=== PATIENT | male | born 1975 | race Hispanic/Latino ===

== ENCOUNTER 2018-01-19 14:05 | Observation (INO) | payer BC ==
--- OUTSIDE RECORDS SUMMARY | 2018-01-19 14:08 | XMS REPORT | Clinical Summary ---
:1975 Author Organization [facility] Address [address] [place] [address] Care Team Providers Name Role Phone Cristhianumu Halima Rutledge MD Primary Care Provider Allergies Active Allergy Reactions Severity Noted Date Comments Sulfa (Sulfonamide Antibiotics) 03/14/2016 Sulfamethoxazole-Trimethoprim Hives Medium 10/20/2016 Current Medications Prescription Sig. Disp. Refills Start End Date Status Date tamsulosin (FLOMAX) tamsulosin 0.4 mg Active 0.4 mg capsule capsule,extended release 24hr meloxicam (MOBIC) meloxicam 15 mg 30 tablet 2 Active 15 mg tablet prn pain 8 tabletIndications: Thoracolumbar back pain, Unspecified thoracic, thoracolumbar and lumbosacral intervertebral disc disorder, Radiculopathy of lumbar region clotrimazole-betame Apply topically 2 30 g 3 Active thasone (LOTRISONE) (two) times a day. 8 1-0.05 % clotrimazole-betam creamIndications: ethasone 1 %-0.05 Rash % topical cream ibuprofen Take 1 tablet (800 30 tablet 0 Active (ADVIL,MOTRIN) 800 mg total) by mouth 8 MG tablet every 8 (eight) hours as needed for mild pain or moderate pain for up to 30 doses. esomeprazole Take 40 mg by 06/19/20 Discontinued (NexIUM) 40 MG mouth daily before 17 capsule breakfast. acetaminophen-codei Take 1-2 tablets 20 tablet 0 06/25/20 ne (TYLENOL WITH by mouth every 6 7 17 CODEINE #3) 300-30 (six) hours as mg per tablet needed for moderate pain for up to 5 days. amoxicillin-pot amoxicillin 875 11/30/19 Discontinued clavulanate mg-potassium 18 (AUGMENTIN) 875-125 clavulanate 125 mg mg per tablet tablet ciprofloxacin ciprofloxacin 500 11/30/19 Discontinued (CIPRO) 500 MG mg tablet 18 tablet clotrimazole-betame clotrimazole-betam 11/30/19 Discontinued thasone (LOTRISONE) ethasone 1 %-0.05 18 1-0.05 % cream % topical cream doxycycline (DORYX) doxycycline 11/30/19 Discontinued 100 MG EC tablet hyclate 100 mg 18 tablet,delayed release doxycycline (ADOXA) doxycycline 11/30/19 Discontinued 100 MG tablet monohydrate 100 mg 18 tablet fluconazole fluconazole 150 mg 11/30/19 Discontinued (DIFLUCAN) 150 MG tablet 18 tablet furosemide (LASIX) furosemide 40 mg 11/30/19 Discontinued 40 mg tablet tablet 18 meloxicam (MOBIC) meloxicam 15 mg 11/30/19 Discontinued 15 mg tablet tablet 18 naproxen (NAPROSYN) naproxen 500 mg 11/30/19 Discontinued 500 MG tablet tablet 18 levoFLOXacin levofloxacin 500 11/30/19 Discontinued (LEVAQUIN) 500 MG mg tablet 18 tablet clotrimazole-betame clotrimazole-betam 30 g 3 12/11/19 Discontinued thasone (LOTRISONE) ethasone 1 %-0.05 8 18 1-0.05 % % topical cream creamIndications: Rash ondansetron Take 1 tablet (4 20 tablet 0 12/21/19 (ZOFRAN) 4 MG mg total) by mouth 8 18 tablet every 8 (eight) hours as needed for nausea or vomiting for up to 7 days. Active Problems Problem Noted Date Pedal edema 12/07/2016 Near syncope 12/07/2016 Bilateral edema of lower extremity 12/05/2016 Encounters Date Type Specialty Care Team Description 12/25/2017 Telephone Internal Medicine [place] Halima Rutledge MD 12/24/2017 Hospital Encounter Radiology [facility] Thoracolumbar back pain; Aamir, Isaiahified thoracic, thoracolumbar and lumbosacral intervertebral disc disorder; Remilekun Radiculopathy of lumbar region MD Ava 12/24/2017 Hospital Encounter Radiology [place] Thoracolumbar back pain; Agbe-Mccarthy, Unspecified thoracic, thoracolumbar and lumbosacral intervertebral disc disorder; Remilekun Radiculopathy of lumbar region MD Ava 12/13/2017 Emergency Emergency [facility] Schmitt [facility] abdominal Medicine MD Stephanie pain (Primary Dx) 12/10/2017 Telephone Internal Medicine [place] Rash Halima Rutledge MD 12/10/2017 Telephone Internal Medicine [place] Gastroesophageal reflux Aamir, disease, esophagitis Halima presence not specified MD Ava (Primary Dx) 11/29/2017 Office Visit Internal Medicine [place] Thoracolumbar back pain ( Primary Dx); Agbe-Mccarthy, Unspecified thoracic, thoracolumbar and lumbosacral intervertebral disc disorder; Remilekun Radiculopathy of lumbar region; MD Ava Thoracic radiculopathy; Visual disturbance; Weight gain; Rash 11/29/2017 Procedure Pass Radiology 11/29/2017 Procedure Pass Radiology 06/20/2017 Hospital Encounter General Surgery Win Quintero III, MD 06/20/2017 Procedure Pass General Surgery 06/20/2017 Surgery General Surgery Win Quintero ESWL RIGHT Misha GONZALEZ MD 06/19/2017 Anesthesia Event General Surgery Radha Balderrama FNP 05/21/2017 Telephone Internal Medicine [place] Halima Rutledge MD 03/19/2017 Telephone Internal Medicine [place] Halima Rutledge MD after 01/18/2017 Family History Medical History Relation Name Comments CABG/Stent Brother age 61 Heart attack Brother age 61 No Known Problems Brother No Known Problems Brother No Known Problems Brother Old age Father age 93 Hypertension Maternal Grandmother Hypertension Mother age 84 No Known Problems Paternal Grandfather No Known Problems Paternal Grandmother COPD Sister No Known Problems Sister No Known Problems Sister No Known Problems Sister Relation Name Status Comments Brother age 61 Alive has had OR and has stents age 55 Brother Alive Brother Alive Brother Alive Father age 93 Maternal Grandfather Maternal Grandmother Mother age 84 Alive Paternal Grandfather Paternal Grandmother Sister Alive Sister Alive Sister Alive Sister Alive Social History Tobacco Use Types Packs/Day Years Used Date Former Smoker Smokeless Tobacco: Never Used Tobacco Cessation: Counseling Given: Yes Comments: 2-3 cigs per day more off than on for 20yrs. Quit 03/10/16 Alcohol Use Drinks/Week oz/Week Comments Yes 12 Cans of beer 7.2 Sex Assigned at Date Recorded Not on file Last Filed Vital Signs Vital Sign Reading Time Taken Blood Pressure 142/90 12/13/2017 3:36 PM CDT Pulse 65 12/13/2017 3:36 PM CDT Temperature 36.4 C (97.5 F) 12/13/2017 3:36 PM CDT Respiratory Rate 20 12/13/2017 3:36 PM CDT Oxygen Saturation 100% 12/13/2017 3:36 PM CDT Inhaled Oxygen Concentration - - Weight 91 kg (200 lb 9.6 oz) 11/29/2017 2:39 PM CDT Height 177.8 cm (5' 10") 12/13/2017 12:43 PM CDT Body Mass Index 28.78 11/29/2017 2:39 PM CDT Plan of Treatment Date Type Specialty Care Team Description 01/31/2018 Office Visit Gastroenterology Clemente Farah MD [address] [address] Health Maintenance Due Date Last Done Comments INFLUENZA VACCINE 02/06/2018 Procedures Procedure Name Priority Date/Time Associated Diagnosis Comments MRI THORACIC SPINE WO Routine 12/24/2017 9:30 Thoracolumbar back Results for this CONTRAST PM CDT pain procedure are in Unspecified thoracic, the results thoracolumbar and section. lumbosacral intervertebral disc disorder Radiculopathy of lumbar region MRI LUMBAR SPINE WO Routine 12/24/2017 9:30 Thoracolumbar back Results for this CONTRAST PM CDT pain procedure are in Unspecified thoracic, the results thoracolumbar and section. lumbosacral intervertebral disc disorder Radiculopathy of lumbar region CT ABDOMEN PELVIS W STAT 12/13/2017 5:21 Results for this CONTRAST PM CDT procedure are in the results section. US GALLBLADDER STAT 12/13/2017 3:08 Results for this PM CDT procedure are in the results section. ESTIMATED GFR STAT 12/13/2017 2:30 Results for this PM CDT procedure are in the results section. URINALYSIS SCREEN AND STAT 12/13/2017 2:30 Results for this MICROSCOPY, WITH PM CDT procedure are in REFLEX TO CULTURE the results section. LIPASE LEVEL STAT 12/13/2017 2:30 Results for this PM CDT procedure are in the results section. COMPREHENSIVE STAT 12/13/2017 2:30 Results for this METABOLIC PANEL PM CDT procedure are in the results section. HC COMPLETE BLD COUNT STAT 12/13/2017 2:30 Results for this W/AUTO DIFF PM CDT procedure are in the results section. URINE CULTURE STAT 12/13/2017 2:30 Results for this PM CDT procedure are in the results section. MICROSCOPIC Routine 11/29/2017 3:26 Results for this EXAMINATION PM CDT procedure are in the results section. THYROID STIMULATING Routine 11/29/2017 3:26 Weight gain Results for this HORMONE PM CDT procedure are in the results section. CBC WITH PLATELET AND Routine 11/29/2017 3:26 Thoracolumbar back Results for this DIFFERENTIAL PM CDT pain procedure are in the results section. URINALYSIS, AUTOMATED Routine 11/29/2017 3:26 Thoracolumbar back Results for this WITH MICROSCOPY PM CDT pain procedure are in the results section. COMPREHENSIVE Routine 11/29/2017 3:26 Thoracolumbar back Results for this METABOLIC PANEL PM CDT pain procedure are in the results section. PA AN ELECTIVE Routine 06/20/2017 2:09 SUPRAGLOTTIC AIRWAY PM CREATIVE PRODUCER Procedure Note - Ligia Hui CRNA - 06/20/2017 2:09 PM CREATIVE PRODUCER Airway Date/Time: 06/20/2017 1:54 PM Performed by: LIGIA HUI Authorized by: WARREN ROTHMAN Location: OR Urgency: Elective Difficult Airway: No Anesthesiologist: WARREN ROTHMAN Resident/ENROLLMENT ADVISOR/AA: LIGIA HUI Performed by: anesthesiologist and resident/ENROLLMENT ADVISOR/AA Preoxygenated with 100% O2: Yes C-spine Precautions Maintained Throughout: Yes Mask Ventilation: Not attempted Final Airway Type: Supraglottic airway Final LMA: I-Gel LMA Size: 5 Number of Attempts at Approach: 1 POC GLUCOSE Routine 06/20/2017 12:01 PM CREATIVE PRODUCER after 01/18/2017 Results MRI Thoracic Spine Wo Contrast (12/24/2017 9:30 PM) Narrative Performed At EXAMINATION: MRI THORACIC SPINE WO CONTRAST [facility] CLINICAL HISTORY: M54.5 Low back pain, M51.9 Unspecified thoracicthoracolumbar and lumbosacral intervertebral disc disorder, Thoracolumbar radiculopathyLE weakness soreness COMPARISON:None TECHNIQUE: Multiplanar multisequence noncontrast enhanced examination was performed of the thoracic spine. FINDINGS: No vertebral fracture. No subluxation. No suspicious osseous lesions. No abnormal spinal cord signal. Small left paracentral disc protrusion and endplate osteophyte at T8-9 and small central disc protrusion at T9-10 indent the ventral thecal sac without significant spinal canal or neural foraminal stenosis. Small Schmorl's node superior endplate of T10 and T11 without edema. No significant neural foraminal stenosis throughout the thoracic spine. There is no mass, adenopathy or aneurysm of the visualized soft tissues. IMPRESSION: 1. Minimal degenerative changes without significant spinal canal or neural foraminal stenosis. [id number] Procedure Note Hm Interface, Radiology Results Incoming - 12/24/2017 9:54 PM CDT EXAMINATION: MRI THORACIC SPINE WO CONTRAST CLINICAL HISTORY: M54.5 Low back pain, M51.9 Unspecified thoracic thoracolumbar and lumbosacral intervertebral disc disorder, Thoracolumbar radiculopathy LE weakness soreness COMPARISON: None TECHNIQUE: Multiplanar multisequence noncontrast enhanced examination was performed of the thoracic spine. FINDINGS: No vertebral fracture. No subluxation. No suspicious osseous lesions. No abnormal spinal cord signal. Small left paracentral disc protrusion and endplate osteophyte at T8-9 and small central disc protrusion at T9-10 indent the ventral thecal sac without significant spinal canal or neural foraminal stenosis. Small Schmorl's node superior endplate of T10 and T11 without edema. No significant neural foraminal stenosis throughout the thoracic spine. There is no mass, adenopathy or aneurysm of the visualized soft tissues. IMPRESSION: 1. Minimal degenerative changes without significant spinal canal or neural foraminal stenosis. [facility]-[id number] Performing Organization Address City/State/Zipcode Phone Number [facility] [address] [place] [address] MRI Lumbar Spine Wo Contrast (12/24/2017 9:30 PM) Narrative Performed At EXAMINATION: MRI LUMBAR SPINE WO CONTRAST [facility] CLINICAL HISTORY: M54.5 Low back pain, M51.9 Unspecified thoracic thoracolumbar and lumbosacral intervertebral disc disorder, Thoracolumbar radiculopathyLE weakness soreness COMPARISON:None TECHNIQUE: Multiplanar multisequence nonenhanced MRI examination was performed of the Lumbar spine. FINDINGS: There are 5 non-rib bearing lumbar type vertebrae. No fracture. No subluxation.No suspicious osseous lesions. No degenerative marrow signal abnormality is present. Conus medullaris terminates at the level of L2. Evaluation of the visualized soft tissues demonstrates no mass, adenopathy or aneurysm. Axial images through the disc spaces demonstrate the following: L1-L2: No significant posterior disc disease, spinal canal, subarticular zone, or neural foraminal stenosis. L2-L3: No significant posterior disc disease, spinal canal, subarticular zone, or neural foraminal stenosis. L3-L4: Small disc bulge contributes to mild bilateral neural foraminal stenosis. No significant spinal canal or subarticular zone stenosis. L4-L5: No significant posterior disc disease, spinal canal, subarticular zone, or neural foraminal stenosis. L5-S1: Small disc bulge with superimposed small left paracentral/foraminal disc protrusion, contributes to mild left greater than right subarticular zone stenosis. Mild bilateral neural foraminal stenosis secondary to small disc bulge and endplate osteophytes. No significant spinal canal stenosis. IMPRESSION: 1. Mild degenerative changes of the lumbar spine, notably at L3-4 and L5-S1 as above. No fracture or traumatic subluxation. [facility]-[id number] Procedure Note Interface, Radiology Results - 12/24/2017 9:56 PM CDT EXAMINATION: MRI LUMBAR SPINE WO CONTRAST CLINICAL HISTORY: M54.5 Low back pain, M51.9 Unspecified thoracic thoracolumbar and lumbosacral intervertebral disc disorder, Thoracolumbar radiculopathy LE weakness soreness COMPARISON: None TECHNIQUE: Multiplanar multisequence nonenhanced MRI examination was performed of the Lumbar spine. FINDINGS: There are 5 non-rib bearing lumbar type vertebrae. No fracture. No subluxation. No suspicious osseous lesions. No degenerative marrow signal abnormality is present. Conus medullaris terminates at the level of L2. Evaluation of the visualized soft tissues demonstrates no mass, adenopathy or aneurysm. Axial images through the disc spaces demonstrate the following: L1-L2: No significant posterior disc disease, spinal canal, subarticular zone, or neural foraminal stenosis. L2-L3: No significant posterior disc disease, spinal canal, subarticular zone, or neural foraminal stenosis. L3-L4: Small disc bulge contributes to mild bilateral neural foraminal stenosis. No significant spinal canal or subarticular zone stenosis. L4-L5: No significant posterior disc disease, spinal canal, subarticular zone, or neural foraminal stenosis. L5-S1: Small disc bulge with superimposed small left paracentral/foraminal disc protrusion, contributes to mild left greater than right subarticular zone stenosis. Mild bilateral neural foraminal stenosis secondary to small disc bulge and endplate osteophytes. No significant spinal canal stenosis. IMPRESSION: 1. Mild degenerative changes of the lumbar spine, notably at L3-4 and L5-S1 as above. No fracture or traumatic subluxation. [id number] Performing Organization Address City/State/Zipcode Phone Number [facility] [address] [place] [address] CT Abdomen Pelvis W Contrast (12/13/2017 5:21 PM) Narrative Performed At Examination: [facility] COMPARISON: None. REASON FOR EXAM: abdominal pain TECHNIQUE: Axial 5 mm sections were obtained after intravenous injection of contrast. Coronal and sagittal reconstructions were performed. All CT scans are performed using radiation dose reduction techniques. Technical factors are evaluated and adjusted to ensure appropriate moderation of exposure. Automated dose management technology is supplied to adjust the radiation dose to minimize exposure while achieving a diagnostic quality image. FINDINGS: Lower lung durand: The lower lung durand are clear. Liver: Liver density is homogeneous except for a couple of small subcentimeter cysts, one in the left lobe and one in the right lobe. Biliary: LVAD is normal in size and there are no calculi. Spleen: Spleen size is normal. Pancreas: Pancreas size and lobulation is normal. Adrenals: Adrenal glands are normal in size. Kidneys: There is no hydronephrosis. There is a 3 mm nonobstructing intrarenal calculus in the middle zone of the right kidney. Lymph nodes: No retroperitonealadenopathy Vascular: Aorta and venacava diameters are normal. G.I. The bowel caliber is normal.There are no inflamatory changes. The appendix is normal. Pelvis: Bladder outline is smooth. There are numerous sigmoid diverticula with no signs of acute diverticulitis. Skeletal: The skeletal structures are unremarkable. IMPRESSION: Nonobstructing 3 mm right intrarenal renal calculus. [id number] Procedure Note Hm Interface, Radiology Results Incoming - 12/13/2017 5:34 PM CDT Examination: CT abdomen with pelvis with COMPARISON: None. REASON FOR EXAM: abdominal pain TECHNIQUE: Axial 5 mm sections were obtained after intravenous injection of contrast. Coronal and sagittal reconstructions were performed. All CT scans are performed using radiation dose reduction techniques. Technical factors are evaluated and adjusted to ensure appropriate moderation of exposure. Automated dose management technology is supplied to adjust the radiation dose to minimize exposure while achieving a diagnostic quality image. FINDINGS: Lower lung durand: The lower lung durand are clear. Liver: Liver density is homogeneous except for a couple of small subcentimeter cysts, one in the left lobe and one in the right lobe. Biliary: LVAD is normal in size and there are no calculi. Spleen: Spleen size is normal. Pancreas: Pancreas size and lobulation is normal. Adrenals: Adrenal glands are normal in size. Kidneys: There is no hydronephrosis. There is a 3 mm nonobstructing intrarenal calculus in the middle zone of the right kidney. Lymph nodes: No retroperitonealadenopathy Vascular: Aorta and venacava diameters are normal. G.I. The bowel caliber is normal. There are no inflamatory changes. The appendix is normal. Pelvis: Bladder outline is smooth. There are numerous sigmoid diverticula with no signs of acute diverticulitis. Skeletal: The skeletal structures are unremarkable. IMPRESSION: Nonobstructing 3 mm right intrarenal renal calculus. [id number] Performing Organization Address City/State/Zipcode Phone Number [facility] [address] [place] [address] US Gallbladder (12/13/2017 3:08 PM) Narrative Performed At EXAMINATION[facility] CLINICAL H[facility]ORY:Cholecystitis COMPARISON:None. FINDINGS: Gallbladder: The gallbladder is without evidence of calculi. The gallbladder wall is not thickened and there is no pericholecystic fluid. CBD:3 mm , within normal limits. Portal vein: The portal vein demonstrates normal hepatopetal flow. The portal vein measures 6 mm, within normal limits. IMPRESSION: Negative gallbladder ultrasound examination. [facility]-[id number] Procedure Note Interface, Radiology Results Incoming - 12/13/2017 3:13 PM CDT EXAMINATION: US GALLBLADDER CLINICAL HISTORY: Cholecystitis COMPARISON: None. FINDINGS: Gallbladder: The gallbladder is without evidence of calculi. The gallbladder wall is not thickened and there is no pericholecystic fluid. CBD: 3 mm , within normal limits. Portal vein: The portal vein demonstrates normal hepatopetal flow. The portal vein measures 6 mm, within normal limits. IMPRESSION: Negative gallbladder ultrasound examination. [facility]-[id number] Performing Organization Address City/State/Zipcode Phone Number [facility] [address] [place] [address] Urinalysis screen and microscopy, with reflex to culture (12/13/2017 2:30 PM) Specimen site Clean catch [facility] DEPARTMENT OF PATHOLOGY AND GENOMIC MEDICINE Color, UA Yellow [facility] DEPARTMENT OF PATHOLOGY AND GENOMIC MEDICINE Appearance, UA Clear [facility] DEPARTMENT OF PATHOLOGY AND GENOMIC MEDICINE Specific gravity, UA 1.021 1.001 - 1.030 [facility] DEPARTMENT OF PATHOLOGY AND GENOMIC MEDICINE pH, UA 5.0 5.0 - 9.0 [facility] DEPARTMENT OF PATHOLOGY AND GENOMIC MEDICINE Protein, UA Negative Negative [facility] OF PATHOLOGY AND GENOMIC MEDICINE Glucose, UA Negative Negative [facility] OF PATHOLOGY AND GENOMIC MEDICINE Ketones, UA Negative Negative [facility] DEPART[facility] OF PATHOLOGY AND GENOMIC MEDICINE Bilirubin, UA Negative Negative [facility] DEPARTMENT OF PATHOLOGY AND GENOMIC MEDICINE Blood, UA Negative Negative [facility] DEPARTMENT OF PATHOLOGY AND GENOMIC MEDICINE Nitrite, UA Negative Negative [facility] DEPARTMENT OF PATHOLOGY AND GENOMIC MEDICINE Urobilinogen, UA <2.0 <2.0 E.U./dL [facility] DEPARTMENT OF PATHOLOGY AND GENOMIC MEDICINE Leukocyte esterase, UA Negative Negative [facility] DEPARTMENT OF PATHOLOGY AND GENOMIC MEDICINE WBC, UA <1 0 - 1 /HPF [facility] DEPARTMENT OF PATHOLOGY AND GENOMIC MEDICINE RBC, UA None seen 0 - 5 /HPF [facility] DEPARTMENT OF PATHOLOGY AND GENOMIC MEDICINE Bacteria, UA None seen None seen [facility] DEPARTMENT OF PATHOLOGY AND GENOMIC MEDICINE Yeast, UA None seen [facility] DE[facility]MENT OF PATHOLOGY AND GENOMIC MEDICINE Yeast with pseudohyphae, UA None seen [facility] DEPARTMENT OF PATHOLOGY AND GENOMIC MEDICINE Specimen Urine Performing Organization Address City/State/Zipcode Phone Number [facility] DEPARTMENT OF PATHOLOGY [address] [place] [address] AND [employer] [facility] Estimated GFR (12/13/2017 2:30 PM) GFR Non Af Amer 73 mL/min/1.73 m2 [facility] DEPARTMENT OF PATHOLOGY AND GENOMIC MEDICINE GFR Af Amer 88 mL/min/1.73 m2 [facility] DEPARTMENT OF Comment: PATHOLOGY AND GENOMIC Chronic kidney disease: <60 mL/min/1.73m2 MEDICINE Kidney failure: <15 mL/min/1.73m2 The estimated GFR is calculated from the IDMS-traceable Modification of Diet in Renal Disease Equation. The accuracy of the calculation is poor when the creatinine is normal. Calculated values >90 mL/min/1.73m2 are not reported. This equation has not been validated in children (<18 years), women, the elderly (>70 years), or ethnic groups other than Caucasians and Americans. Specimen Plasma specimen Performing Organization Address City/State/Zipcode Phone Number [facility] DEPARTMENT OF PATHOLOGY [address] [place] [address] AND [facility] CBC with platelet and differential (12/13/2017 2:30 PM)Only the most recent of2 resultswithin the time period is included. WBC 4.3 (L) 4.5 - 11.0 k/uL [facility] DEPARTMENT OF PATHOLOGY AND GENOMIC MEDICINE RBC 4.25 (L) 4.40 - 6.00 m/uL [facility] DEPARTMENT OF PATHOLOGY AND GENOMIC MEDICINE HGB 14.1 14.0 - 18.0 g/dL [facility] DEPARTMENT OF PATHOLOGY AND GENOMIC MEDICINE HCT 41.2 41.0 - 51.0 % [facility] DEPARTMENT OF PATHOLOGY AND GENOMIC MEDICINE MCV 96.9 82.0 - 100.0 fL [facility] DEPARTMENT OF PATHOLOGY AND GENOMIC MEDICINE MCH 33.2 27.0 - 34.0 pg [facility] DEPARTMENT OF PATHOLOGY AND GENOMIC MEDICINE MCHC 34.2 31.0 - 37.0 g/dL [facility] DEPARTMENT OF PATHOLOGY AND GENOMIC MEDICINE RDW - SD 43.1 37.0 - 55.0 fL [facility] DEPARTMENT OF PATHOLOGY AND GENOMIC MEDICINE MPV 9.4 6.9 - 11.0 fL [facility] DEPARTMENT OF PATHOLOGY AND GENOMIC MEDICINE Platelet count 254 150 - 400 K/uL [facility] DEPARTMENT OF PATHOLOGY AND GENOMIC MEDICINE Nucleated RBC 0.00 /100 WBC [facility] DEPARTMENT OF PATHOLOGY AND GENOMIC MEDICINE Neutrophils 36.7 (L) 39.0 - 69.0 % [facility] DEPARTMENT OF PATHOLOGY AND GENOMIC MEDICINE Lymphocytes 53.1 (H) 25.0 - 45.0 % [facility] DEPARTMENT OF PATHOLOGY AND GENOMIC MEDICINE Monocytes 7.7 0.0 - 10.0 % [facility] DEPARTMENT OF PATHOLOGY AND GENOMIC MEDICINE Eosinophils 1.4 0.0 - 5.0 % [facility] DEPARTMENT OF PATHOLOGY AND GENOMIC MEDICINE Basophils 0.9 0.0 - 1.0 % [facility] DEPARTMENT OF PATHOLOGY AND GENOMIC MEDICINE Immature granulocytes 0.2 0.0 - 1.0 % [facility] DEPARTMENT OF PATHOLOGY AND GENOMIC MEDICINE Specimen Blood Performing Organization Address City/[facility]/Zipcode Phone Number [facility] DEPARTMENT OF PATHOLOGY [address] [place] [address] AND [facility] Urine culture (12/13/2017 2:30 PM) Urine culture SEE COMMENTComment: Bacteriuria [facility] DEPARTMENT OF PATHOLOGY screen negative. AND GENOMIC MEDICINE Performing Organization Address City/[facility]/Zipcode Phone Number [facility] DEPARTMENT OF PATHOLOGY [address] [place] [address] AND [facility] Lipase level (12/13/2017 2:30 PM) Lipase 45 13 - 60 U/L [facility] DEPARTMENT OF PATHOLOGY AND GENOMIC MEDICINE Specimen Plasma specimen Performing Organization Address [facility] Phone Number [facility] DEPARTMENT OF PATHOLOGY [address] [place] [address]. [place] [address] AND [facility] Comprehensive metabolic panel (12/13/2017 2:30 PM)Only the most recent of2 resultswithin the time period is included. Sodium 141 135 - 148 mEq/L [facility] DEPARTMENT OF PATHOLOGY AND GENOMIC MEDICINE Potassium 4.1 3.5 - 5.0 mEq/L [facility] DEPARTMENT OF PATHOLOGY AND GENOMIC MEDICINE Chloride 105 98 - 112 mEq/L [facility] DEPARTMENT OF PATHOLOGY AND GENOMIC MEDICINE CO2 25 24 - 31 mEq/L [facility] DEPARTMENT OF PATHOLOGY AND GENOMIC MEDICINE Anion gap 11@ANIO 7 - 15 mEq/L [facility] DEPARTMENT OF PATHOLOGY AND GENOMIC MEDICINE BUN 19 6 - 20 mg/dL [facility] DEPARTMENT OF PATHOLOGY AND GENOMIC MEDICINE Creatinine 1.1 0.7 - 1.2 mg/dL [facility] DEPARTMENT OF PATHOLOGY AND GENOMIC MEDICINE Glucose 84 65 - 99 mg/dL [facility] DEPARTMENT OF PATHOLOGY AND GENOMIC MEDICINE Calcium 8.8 8.3 - 10.2 mg/dL [facility] DEPARTMENT OF PATHOLOGY AND GENOMIC MEDICINE Protein 7.0 6.3 - 8.3 g/dL [facility] DEPARTMENT OF PATHOLOGY AND GENOMIC MEDICINE Albumin 4.1 3.5 - 5.0 g/dL [facility] DEPARTMENT OF PATHOLOGY AND GENOMIC MEDICINE A/G ratio 1.4 0.7 - 3.8 [facility] DEPARTMENT OF PATHOLOGY AND GENOMIC MEDICINE Alkaline phosphatase 43 40 - 129 U/L [facility] DEPARTMENT OF PATHOLOGY AND GENOMIC MEDICINE AST 19 10 - 50 U/L [facility] DEPARTMENT OF PATHOLOGY AND GENOMIC MEDICINE ALT 26 5 - 50 U/L [facility] DEPARTMENT OF PATHOLOGY AND GENOMIC MEDICINE Total bilirubin 0.6 0.2 - 1.2 mg/dL [facility] DEPARTMENT OF PATHOLOGY AND GENOMIC MEDICINE Specimen Plasma specimen Performing Organization Address [facility] Phone Number [facility] DEPARTMENT OF PATHOLOGY [address] [place] [address] AND [employer] [facility] Microscopic Examination (11/29/2017 3:26 PM) WBC, UA 0-5 0 - 5 /hpf [facility] RBC, UA 0-2 0 - 2 /hpf [facility] Epithelial cells (non renal) 0-10 0 - 10 /hpf [facility] Mucus, UA Present Not Estab. [facility] Bacteria, UA None seen None seen/Few [facility] Narrative Performed At Performed at:01 - [facility] [address] [place], [id number] Hypnotherapist: Yves Tran MD, Phone:[phone] Performing Organization Address City/[facility]/Zipcode Phone Number [facility] Urinalysis, automated with microscopy (11/29/2017 3:26 PM) Specific gravity, urine 1.022 1.005 - 1.030 [facility] pH, urine 6.0 5.0 - 7.5 [facility] Color, UA Yellow Yellow [facility] Appearance Clear Clear [facility] WBC esterase, urine Negative Negative [facility] Protein, UA Negative Negative/Trace [facility] Glucose, urine Negative Negative [facility] Ketones, UA Negative Negative [facility] Occult blood, urine Negative Negative [facility] Bilirubin, UA Negative Negative [facility] Urobilinogen, UA 0.2 0.2 - 1.0 mg/dL [facility] Nitrite, UA Negative Negative [facility] Microscopic examination CommentComment: Microscopic [facility] follows if indicated. Microscopic examination See below:Comment: Microscopic [facility] was indicated and was performed. Specimen Urine Narrative Performed At Performed at: - [facility] [address] [place], [id number] Hypnotherapist: Yves Tran MD, Phone:[phone] Performing Organization Address [facility] Cent[facility] Phone Number [facility] Thyroid stimulating hormone (11/29/2017 3:26 PM) TSH 1.540 0.450 - 4.500 uIU/mL [facility] Specimen Blood Narrative Performed At Performed at: - [facility] [address] [place], [place] [id number] Hypnotherapist: Yves Tran MD, Phone:[phone] Performing Organization Address [facility] Cent[facility] Phone Number [facility] POC glucose (06/20/2017 12:01 PM) POC glucose 84 65 - 99 mg/dL [facility] DEPARTMENT OF PATHOLOGY AND Comment: GENOMIC MEDICINE Meter ID: [id number] Senior Oracle Database Developer: Tad Herrera Performing Organization Address City/[facility] Cent[facility] Phone Number [facility] DEPARTMENT OF PATHOLOGY [address] [place] [address] AND GENOMIC MEDICINE after 01/18/2017 Insurance Payer Benefit Plan / Group Subscriber ID Type Phone Address BCBS BCBS CHOICE PPO/[employer]PL PPO xxxxxxxxxxxx PPO [phone] [place] [address]
[2018-01-19] MEDS ORDERED: IBUPROFEN 200 MG TAB PO ONE (15:21)
--- NOTE | 2018-01-19 17:08 | RAD REPORT ---
EXAM DESCRIPTION: VAS - Extremity Venous Uni Ltd - 01/19/2018 4:06 pm CLINICAL HISTORY: Left lower extremity pain Preliminary findings provided at time of the study. COMPARISON: March 2017 TECHNIQUE: Real-time sonographic evaluation of the left lower extremity deep venous system was perfo rmed. FINDINGS: Normal compressibility, flow augmentation, phasic flow and spontaneous flow are identified in the left lower extremity common femoral, superficial femoral popliteal veins. There is minimal fl ow in the proximal posterior tibial vein. The mid the distal posterior tibial vein is noncompressible with thrombus identifiable. . No mass or abnormal fluid collection in the soft tissues. IMPRESSION: Deep venous thrombosis in the posterior tibial vein. No thrombus above the knee.
--- NOTE | 2018-01-19 17:12 | RAD REPORT ---
EXAM DESCRIPTION: RAD - Tib Fib Left - 01/19/2018 4:09 pm CLINICAL HISTORY: Leg pain, calf pain COMPARISON: None. FINDINGS: No fracture is identified. There is no dislocation or periosteal reaction noted. No acute or suspicious bony finding. No foreign body or other soft tissue abnormality. Curvilinear artifact is seen over the posterior upp er leg soft tissues on the lateral view. IMPRESSION: Negative left tibia & fibula examination.
--- NOTE | 2018-01-19 17:19 | RAD REPORT ---
EXAM DESCRIPTION: CT - Chest For Pe Angio - 01/19/2018 5:10 pm CLINICAL HISTORY: Chest pain, left calf pain COMPARISON: None. TECHNIQUE: Dynamically enhanced 3 mm thick images of the chest were obtained during administration o f approximately 150mL Isovue 370 IV contrast. Coronal and oblique reconstruction images were generate d and reviewed using maximum intensity projection protocol. Exam utilizes a protocol to evaluate the pulmonary arterial tree. All CT scans are performed using dose optimization technique as appropriate and may include automated exposure control or mA/KV adjustment according to patient size. FINDINGS: Pulmonary emboli are present in the right lower lobe lobar branch extending into segmental branches. No left-sided pulmonary emboli confirmed. The aorta as imaged shows no acute or suspicious finding. No pericardial thickening or effusion. No pulmonary hemorrhage, infiltrate or acute lung parenchymal finding. Interstitial markings are prom inent and the patient could have a component of interstitial edema or infiltrate. No pleural effusion or pleural thickening. No mediastinal or hilar suspicious masses. No chest wall masses or abnormal axillary lymphadenopathy. IMPRESSION: Right lower lobe lobar and segmental branch pulmonary emboli. Interstitial edema or infiltrate suspected. No pulmonary hemorrhage, mass or consolidation.
[2018-01-19 17:29] LABS: Protime INR 1.18
--- NOTE | 2018-01-19 17:34 | ER ---
Nurse's Notes [facility] Name: Samson Moreno Age: 42 yrs Sex: Male : 1975 Arrival Date: 01/19/2018 Time: 14:07 Bed 27 Private MD: out of town, doctor Diagnosis: Acute embolism and thrombosis of other specified deep vein of lower extremity;Pulmonary embolism-rioght lobar and subsegmental Presentation: 01/19 14:11 Presenting complaint: Patient states: left calf pain x 1 day. Transition of care: sv patient was not received from another setting of care. Onset of symptoms was January 18, 2018. Care prior to arrival: None. 14:11 Method Of Arrival: Ambulatory sv 14:11 Acuity: JEANA 3 sv 16:09 Risk Assessment: Do you want to hurt yourself or someone else? Patient reports no mb3 desire to harm self or others. Initial Sepsis Screen: Does the patient meet any 2 criteria? No. Patient's initial sepsis screen is negative. Does the patient have a suspected source of infection? No. Patient's initial sepsis screen is negative. Historical: - Allergies: 14:12 Sulfa (Sulfonamide Antibiotics); sv - Home Meds: 14:12 Flagyl Oral [Active]; sv - PMHx: 14:12 GERD; Issues with Veins in each Leg; sv - PSHx: 14:12 Vasectomy; sv - Immunization history:: Adult Immunizations up to date. - Social history:: Smoking status: Patient/guardian denies using tobacco. - Ebola Screening: : No symptoms or risks identified at this time. - Family history:: not pertinent. Screenin:07 Abuse screen: Denies threats or abuse. Nutritional screening: No deficits noted. mb3 Tuberculosis screening: No symptoms or risk factors identified. Fall Risk None identified. Assessment: 16:06 General: Appears in no apparent distress. comfortable, Behavior is calm, cooperative, mb3 appropriate for age. Pain: Complains of pain in left calf Pain does not radiate. Neuro: No deficits noted. Cardiovascular: No deficits noted. Respiratory: No deficits noted. GI: No deficits noted. No signs and/or symptoms were reported involving the gastrointestinal system. : No deficits noted. No signs and/or symptoms were reported regarding the genitourinary system. EENT: No deficits noted. No signs and/or symptoms were reported regarding the EENT system. Derm: No deficits noted. No signs and/or symptoms reported regarding the dermatologic system. 18:16 Reassessment: Patient and/or family updated on plan of care and expected duration. Pain mb3 level reassessed. Patient is alert, oriented x 3, equal unlabored respirations, skin warm/dry/pink. Patient denies pain at this time. 19:40 Reassessment: Patient and/or family updated on plan of care and expected duration. Pain mb3 level reassessed. Patient is alert, oriented x 3, equal unlabored respirations, skin warm/dry/pink. Patient denies pain at this time. Vital Signs: 14:12 BP 113 / 79; Pulse 69; Resp 18; Temp 97.7(O); Pulse Ox 98% ; Weight 90.72 kg; Height 5 sv ft. 10 in. (177.80 cm); 18:16 BP 127 / 94; Pulse 60; Resp 16; Pulse Ox 98% on R/A; mb3 19:40 BP 128 / 95; Pulse 71; Resp 17; Pulse Ox 98% ; mb3 14:12 Body Mass Index 28.70 (90.72 kg, 177.80 cm) sv ED Course: 14:07 Patient arrived in ED. sb2 14:08 out of town, doctor is Private Physician. sb2 14:12 Triage completed. sv 14:14 Arm band placed on right wrist. sv 14:16 Vidal Phan, LINA is Primary Nurse. mb3 14:19 Kieran Walsh MD is Attending Physician. peri 15:49 Ultrasound completed. Patient tolerated well. Notified Primary Nurse Percy. sg3 16:05 US Extremity Venous Unilateral Ltd Sent. mb3 16:05 Tib Fib Left XRAY Sent. mb3 16:06 US Extremity Venous Unilateral Ltd In Process Unspecified. EDMS 16:09 Tib Fib Left XRAY In Process Unspecified. EDMS 16:09 Patient has correct armband on for positive identification. mb3 16:10 No provider procedures requiring assistance completed. Patient did not have IV access mb3 during this emergency room visit. 16:33 Radiology exam delayed due to lab results not completed at this time. (BUN/Creatinine). kw1 16:56 Inserted saline lock: 20 gauge in left antecubital area, using aseptic technique. Blood mb3 collected. 17:08 CT completed. Patient moved to CT via stretcher. Patient moved back from CT. kw1 17:10 CT Chest For PE Angio In Process Unspecified. EDMS 17:31 Андрей Swain MD is Hospitalizing Provider. [facility] 17:37 EKG done, by ED staff, reviewed by Kieran Walsh MD. 3 Administered Medications: 15:19 Drug: Motrin 600 mg Route: PO; mb3 18:19 Follow up: Response: No adverse reaction 3 17:55 Drug: Lovenox 1 mg/kg Route: Sub-Q; Site: right lower abdomen; mb3 18:18 Follow up: Response: No adverse reaction mb3 Outcome: 17:33 Decision to Hospitalize by Provider. [facility] 19:32 Admitted to Tele accompanied by tech, via wheelchair, room 424, with chart, Report mb3 called to Dalia Chatterjee RN 19:32 Condition: stable 19:32 Instructed on the need for admit. 20:07 Patient left the ED. mb3 Signatures: Dispatcher [employer] EDNinfa Hopson, RN Kieran Luis MD MD cha Herrera, Soraya dh3 Oliva Fragoso kw1 Cathi Vuong sg3 Lucina Iglesias sb2 Vidal Phan, RN RN mb3
--- NOTE | 2018-01-19 17:34 | EDPHYS ---
Physician Documentation [facility] Name: Samson Moreno Age: 42 yrs Sex: Male : 1975 Arrival Date: 01/19/2018 Time: 14:07 Bed 27 Private MD: out of town, doctor ED Physician Kieran Walsh HPI: 01/19 15:12 This 42 yrs old Male presents to ER via Ambulatory with complaints of Leg Pain.peri 15:12 The patient presents with pain, that is acute. The complaints affect the medial aspect peri of left calf. Context: The problem was sustained at an unknown site. Onset: The symptoms/episode began/occurred 2 day(s) ago. Modifying factors: The symptoms are alleviated by elevating leg, remaining still, the symptoms are aggravated by movement, weight bearing, bending knee. Associated signs and symptoms: The patient has no apparent associated signs or symptoms. Treatment prior to arrival includes: no previous treatment. Severity of symptoms: At their worst the symptoms were mild, moderate, in the emergency department the symptoms have resolved. The patient has not experienced similar symptoms in the past. Historical: - Allergies: 14:12 Sulfa (Sulfonamide Antibiotics); sv - Home Meds: 14:12 Flagyl Oral [Active]; sv - PMHx: 14:12 GERD; Issues with Veins in each Leg; sv - PSHx: 14:12 Vasectomy; sv - Immunization history:: Adult Immunizations up to date. - Social history:: Smoking status: Patient/guardian denies using tobacco. - Ebola Screening: : No symptoms or risks identified at this time. - Family history:: not pertinent. ROS: 15:12 Constitutional: Negative for fever, chills, and weight loss, Eyes: Negative for injury, peri pain, redness, and discharge, ENT: Negative for injury, pain, and discharge, Neck: Negative for injury, pain, and swelling, Cardiovascular: Negative for chest pain, palpitations, and edema, Respiratory: Negative for shortness of breath, cough, wheezing, and pleuritic chest pain, Abdomen/GI: Negative for abdominal pain, nausea, vomiting, diarrhea, and constipation, Back: Negative for injury and pain, : Negative for injury, bleeding, discharge, and swelling, Skin: Negative for injury, rash, and discoloration, Neuro: Negative for headache, weakness, numbness, tingling, and seizure, Psych: Negative for depression, anxiety, suicide ideation, homicidal ideation, and hallucinations, Allergy/Immunology: Negative for hives, rash, and allergies, Endocrine: Negative for neck swelling, polydipsia, polyuria, polyphagia, and marked weight changes. 15:12 MS/extremity: Positive for decreased range of motion, pain, tenderness, of the medial aspect of left calf. Exam: 15:12 Skin: Appearance: Color: normal in color, pink, Temperature: normal temperature, [facility] Moisture: normal moisture, petechiae, not noted, ecchymosis, not noted, flushing, not noted, diaphoresis is not appreciated. 15:12 Neuro: Orientation: is normal. Vital Signs: 14:12 BP 113 / 79; Pulse 69; Resp 18; Temp 97.7(O); Pulse Ox 98% ; Weight 90.72 kg; Height 5 sv ft. 10 in. (177.80 cm); 18:16 BP 127 / 94; Pulse 60; Resp 16; Pulse Ox 98% on R/A; mb3 19:40 BP 128 / 95; Pulse 71; Resp 17; Pulse Ox 98% ; mb3 14:12 Body Mass Index 28.70 (90.72 kg, 177.80 cm) sv MDM: 14:19 Patient medically screened. 01/19 16:25 Order name: Basic Metabolic Panel; Complete Time: 18:03 01/19 16:25 Order name: CBC with Diff; Complete Time: 18:03 01/19 16:25 Order name: Ckmb; Complete Time: 18:03 01/19 16:25 Order name: CPK; Complete Time: 18:03 01/19 16:25 Order name: LFT's; Complete Time: 18:03 01/19 16:25 Order name: Magnesium; Complete Time: 18:03 01/19 15:11 Order name: US Extremity Venous Unilateral Ltd; Complete Time: 17:22 01/19 15:11 Order name: Tib Fib Left XRAY; Complete Time: 17:22 01/19 16:25 Order name: NT PRO-BNP; Complete Time: 18:03 01/19 16:25 Order name: PT-INR; Complete Time: 18:03 01/19 16:25 Order name: Ptt, Activated; Complete Time: 18:03 14 16:25 Order name: Troponin (emerg Dept Use Only); Complete Time: 18:03 [facility] 01/19 16:25 Order name: CT Chest For PE Angio; Complete Time: 17:22 [facility] 01/19 16:25 Order name: EKG; Complete Time: 16:26 [facility] 01/19 16:25 Order name: Cardiac monitoring; Complete Time: 16:56 [facility] 01/19 16:25 Order name: EKG - Nurse/Tech; Complete Time: 17:37 [facility] 01/19 16:25 Order name: IV Saline Lock; Complete Time: 16:56 [facility] 01/19 16:25 Order name: Labs collected and sent; Complete Time: 16:56 [facility] 01/19 16:25 Order name: O2 Per Protocol; Complete Time: 16:56 [facility] 01/19 16:25 Order name: O2 Sat Monitoring; Complete Time: 18:19 [facility] 01/19 17:39 Order name: CONS Physician Consult EDMS Administered Medications: 15:19 Drug: Motrin 600 mg Route: PO; mb3 18:19 Follow up: Response: No adverse reaction mb3 17:55 Drug: Lovenox 1 mg/kg Route: Sub-Q; Site: right lower abdomen; mb3 18:18 Follow up: Response: No adverse reaction mb3 Disposition: 01/19/18 17:33 Hospitalization ordered by Андрей Swain for Observation. Preliminary diagnosis are Acute embolism and thrombosis of other specified deep vein of lower extremity, Pulmonary embolism - rioght lobar and subsegmental . - Bed requested for Telemetry/MedSurg (observation). - Status is Observation. mb3 - Condition is Stable. - Problem is new. - Symptoms are unchanged. UTI on Admission? No Signatures: Dispatcher [employer] EDMS Ninfa Cox RN RN sv Anderson, Corey, MD MD cha Botello, Elizabeth eb Barnett, Mark, RN RN mb3 Corrections: (The following items were deleted from the chart) 17:05 16:26 Chest Single View+RAD.RAD.BRZ ordered. EDMS EDMS 18:41 17:33 Hospitalization Ordered by Андрей Swain MD for Observation. Preliminary eb diagnosis is Acute embolism and thrombosis of other specified deep vein of lower extremity; Pulmonary embolism - rioght lobar and subsegmental . Bed requested for Telemetry/MedSurg (observation). Status is Observation. Condition is Stable. Problem is new. Symptoms are unchanged. UTI on Admission? No. peri 18:41 18:41 01/19/2018 17:33 Hospitalization Ordered by Андрей Swain MD for Observation. eb Preliminary diagnosis is Acute embolism and thrombosis of other specified deep vein of lower extremity; Pulmonary embolism - rioght lobar and subsegmental . Bed requested for Telemetry/MedSurg (observation). Status is Observation. Condition is Stable. Problem is new. Symptoms are unchanged. UTI on Admission? No. eb 20:07 18:41 01/19/2018 17:33 Hospitalization Ordered by Андрей Swain MD for Observation. mb3 Preliminary diagnosis is Acute embolism and thrombosis of other specified deep vein of lower extremity; Pulmonary embolism - rioght lobar and subsegmental . Bed requested for Telemetry/MedSurg (observation). Status is Observation. Condition is Stable. Problem is new. Symptoms are unchanged. UTI on Admission? No. eb
[2018-01-19 17:38] LABS: Absolute Lymphocytes (CBC) 2.4 K/uL (0.7-4.9); Absolute Monocytes 0.4 K/uL (0.1-1.3); Absolute Neutrophil 2.8 K/uL (1.8-8.0); Basophils % 0.9 % (0-1.3); Eosinophils % 1.3 % (0-4.4); Hematocrit 39.9 % (39.6-49.0); Lymphocytes % 42.4 % (15.3-44.8); MCH 33.5 pg (27.0-35.0); MCV 97.8 fL (80-100); MPV 7.9 fL (7.6-11.3); Monocytes % 6.9 % (3.3-12.3); RBC Red Blood Cell Count 4.08 M/uL (4.33-5.43)
[2018-01-19] MEDS ORDERED: ENOXAPARIN 100 MG/ML SYR SQ ONE (17:48)
[2018-01-19 17:55] LABS: ALT/SGPT 61 U/L (12-78); AST/SGOT 30 U/L (15-37); Albumin 3.3 g/dL (3.4-5.0); Alkaline Phosphatase 39 U/L (45-117); BUN Blood Urea Nitrogen 18 mg/dL (7-18); Bicarbonate 26 mmol/L (21-32); Bilirubin Direct < 0.1 mg/dL (0-0.2); Bilirubin Total 0.3 mg/dL (0.2-1.0); CKMB Creatine Kinase MB < 1.0 ng/mL (0.3-3.6); Creatine Phosphokinase 63 U/L (39-308); Glucose Level 103 mg/dL (74-106); Magnesium 2.4 mg/dL (1.8-2.4); NT PRO-BNP 24 pg/mL (<125); Potassium 3.9 mmol/L (3.5-5.1); Protein, Total 6.6 g/dL (6.4-8.2); Sodium Level 142 mmol/L (136-145)
[2018-01-19] MEDS ORDERED: ACETAMINOPHEN 650MG/RECT SUPP RECT PRN (20:13)
[2018-01-19] MEDS ORDERED: ZOLPIDEM TARTRATE 5 MG TABLET PO PRN (20:13)
[2018-01-19] MEDS ORDERED: ONDANSETRON 4 MG/2 ML VIAL IV PRN (20:13)
[2018-01-19 20:23] VITALS: BMI 27.6
[2018-01-19] MEDS: NA CHLORIDE 0.9% 1,000 ML IV SCH (21:07)
[2018-01-19] MEDS: ALBUTEROL 2.5 MG/3 ML NEB SOL NEB SCH (21:15)
[2018-01-19] MEDS: IPRATROPIUM BROM 0.5MG/2.5ML NEB SCH (21:15)
[2018-01-20] MEDS: ALBUTEROL 2.5 MG/3 ML NEB SOL NEB SCH ×3 (01:33→13:42)
[2018-01-20] MEDS: IPRATROPIUM BROM 0.5MG/2.5ML NEB SCH ×3 (01:33→13:42)
[2018-01-20] MEDS ORDERED: TRAMADOL HCL 50 MG TAB PO PRN (02:55)
[2018-01-20 03:02] LABS: Urine Appearance CLEAR; Urine Bilirubin NEGATIVE (NEG); Urine Blood NEGATIVE (NEG); Urine Color YELLOW; Urine Glucose NEGATIVE (NEG); Urine Protein NEGATIVE (NEG); Urine Specific Gravity >=1.030 (1.005-1.030); Urine Urobilinogen 0.2 mg/dL (0.2-1.0); Urine pH 5.5 (5.0-7.0)
[2018-01-20 03:06] LABS: Urine Microscopic Reflex NO UMIC
[2018-01-20 05:11] LABS: Absolute Lymphocytes (CBC) 2.2 K/uL (0.7-4.9); Absolute Monocytes 0.4 K/uL (0.1-1.3); Absolute Neutrophil 1.9 K/uL (1.8-8.0); Basophils % 0.9 % (0-1.3); Eosinophils % 2.1 % (0-4.4); Hematocrit 37.9 % (39.6-49.0); Lymphocytes % 47.3 % (15.3-44.8); MCV 97.2 fL (80-100); MPV 7.5 fL (7.6-11.3); Monocytes % 7.8 % (3.3-12.3)
--- NOTE | 2018-01-20 05:25 | HP ---
Date of Admission: 01/19/2018 Reason For Admission: PE, DVT. History Of Present Illness: This is a 42-year-old gentleman with history of acid reflux, presented to the emergency room with history of 2 days of progressive swelling in his left calf and pain in the medial aspect. Pain improves with elevating legs. It is worse with weightbear, bending knees, and movement. The patient had no history of PE or DVT There were no audible wheezes , and CAT scan of the chest showed right lower lobe lobar and segmental branch pulmonary emboli, interstitial edema, or infiltrates suspected. Low extremity Doppler done also in the emergency room showed deep venous thrombosis on both tibial veins. No thrombosis above the knee. X-rays of the tibia and fibula were negative. The patient was started on anticoagulation and admitted for further evaluation. Currently, lying in bed. He looks comfortable. No chest pain or abdominal pain. Review of systems, otherwise, as below. Past Medical History,: Significant for acid reflux. Past Surgical History: Significant for vasectomy. Allergies: SULFA. Home Medication: Flagyl. 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 No blurred vision or loss consciousness. No headache. No chest pain, palpitations, edema. No shortness of breath, cough, or wheezing. No nausea or vomiting, abdominal pain , change in bowel movement, diarrhea or constipation, dysuria frequency, urgency , hematuria. There is no history of depression, anxiety, seizure, or stroke. Physical Examination: Vital Signs: Currently, blood pressure is 113/79, respiratory rate 18, pulse 69 , temperature 97.7, and saturating 98%. General: He is alert and oriented x3. Does not look in any distress. HEENT: Atraumatic, normocephalic. PERRLA. Oral mucosa is moist. Neck: Supple. No JVD. No carotid bruits. Chest: Clear to auscultation. Good air entry. Heart: Regular rate and rhythm. S1, S2 normal. No gallop or murmur. Abdomen: Soft, nontender. No masses. No hepatosplenomegaly. Positive bowel sounds. Extremities: No clubbing, cyanosis, or edema. No calf tenderness. Neurologic: Grossly intact. Cranial nerve exam 2 through 12 intact. Normal sensation. Normal reflexes. Normal muscle strength. Laboratory Data: In the emergency room showed CBC within normal. PT/INR was normal. CMP was normal. GFR of 73, calcium of 8.3, albumin of 3.3. Assessment/plan: A 42-year-old gentleman with history of left leg pain, found to have deep vein thrombosis and pulmonary embolism. 1. Acute deep vein thrombosis with acute pulmonary embolism. At this point, for admission to the hospital. We will keep patient on oxygen. We will put him on auscultation with full-dose Lovenox. We will switch tomorrow to Xarelto or Eliquis depending on patient insurance. The patient will receive breathing treatment as needed. will need to check hypercoag panel specially with family hx of factor V lieden 2. Symptomatic treatment for pain. 3. We will educate the patient about the risk of deep vein thrombosis, pulmonary embolism like tobacco abuse, weight, etc. SEBAS Voice ID: [id number]
[2018-01-20 05:29] LABS: Albumin 2.9 g/dL (3.4-5.0); Bilirubin Total 0.2 mg/dL (0.2-1.0); Potassium 4.1 mmol/L (3.5-5.1); Protein, Total 5.8 g/dL (6.4-8.2)
[2018-01-20] MEDS ORDERED: ENOXAPARIN 100 MG/ML SYR SQ SCH (06:00)
[2018-01-20] MEDS: NA CHLORIDE 0.9% 1,000 ML IV SCH (06:13)
--- NOTE | 2018-01-20 09:30 | EKG ---
Test Date: 2018-01-19 Test Time: 17:33:45 Playground Monitor: SACHA MEASUREMENT RESULTS: Intervals: Rate: 52 [place]: 164 QRSD: 82 QT: 430 QTc: 399 [place]: P: 49 [place]: 164 QRS: 15 T: 30 INTERPRETIVE STATEMENTS: Sinus bradycardia Otherwise normal ECG Compared to ECG 03/11/2016 05:52:03 Sinus rhythm no longer present Left ventricular hypertrophy no longer present Electronically Signed On 01-20-18 09:27:58 CDT by Ty Cabrera
[2018-01-20 13:13] VITALS: O2SAT 100
--- NOTE | 2018-01-20 14:43 | CON ---
Date of Consultation: 01/20/[address] Swain on 01/19/2018 for pulmonary embolus and DVT. I saw the patient on 01/20/2018 . History Of Present Illness: Mr. Moreno is a 42-year-old [place] male with history of gastroes ophageal reflux disease, venous insufficiency, recent colitis on January 10, 2018, for which he is still taking Flagyl. He had an episode of fever of unknown etiology in April of 2017. All these are con cerning, considering his age in the fact that he does not have much in the way of risk factors, but derek thao came in with pain in the left lower extremity, was found to have a left posterior tibial vein deep venous thrombosis with a pulmonary embolus in the right lower lobe. He has been treated on Lovenox s gabby he has been admitted 90 mg subcu q.12 hours. He has no shortness of breath, but continues to young ve some left leg pain. Past Medical History: As stated above. Allergies: HE IS ALLERGIC TO SULFA. Review of Systems: Negative. Social History: Negative for tobacco, alcohol, or drug use. 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 Family History: Negative. Medications: At home include Dexilant and Flagyl. This is cared for by Dr. Dumas. Physical Examination: VITAL SIGNS: Stable. He was afebrile. HEENT: Negative. NECK: Supple. No bruit. CHEST: Clear. CARDIAC: Exam revealed a regular rhythm and rate. No murmurs, gallops, or rubs. ABDOMEN: Benign. EXTREMITIES: Revealed no clubbing, cyanosis, or edema. He was tender in the left calf. Diagnostic Data: As stated above. Impression And Plan: 1.Acute deep venous thrombosis and pulmonary embolus. 2.Recent fever of unknown origin in April of 2017. 3.Recent colitis in January 102017, remains on antibiotics. 4.Gastroesophageal reflux disease. 5.Venous insufficiency. History Of Present Illness: Mr. Moreno needs to be switched to either Xarelto or Eliquis and I will leave that up to Dr. Swain. He can go home today. I ordered blood work to rule out hypercoagulabl e state. Protein C, protein S, antithrombin 3 level, as well as a lupus anticoagulant were ordered. He will see me in the office. I will have him do an echocardiogram and another venous Doppler [place] in the next 2-4 weeks before he can go back to normal activities. We will decide on how long to treat him with Eliquis depend on his blood work. If his blood work is abnormal, I will have him see in Hematology. He can go home whenever it is okay with Dr. Swain. LINDSEY/WILVER Voice ID: [id number] Report ID: [id number]
[2018-01-20 16:06] VITALS: BP 131/81; TEMP 97.1
--- NOTE | 2018-01-21 07:11 | DS ---
Discharge Diagnoses: 1.Right lung pulmonary embolism. 2.Left lower extremity deep vein thrombosis. 3.Family history of factor V Leiden. Consult: Cardiology. Procedures: 1.CT of the chest showed right lower lobe segmental branch pulmonary embolism. 2.Venous Doppler showed deep venous thrombosis in the posterior tibial vein. History Of Present Illness: Please refer to the history and physical. Hospital Course: Initially, the patient presented with left leg tenderness in the ER wher e they were evaluated. The left lower extremity Doppler showed DVT and the CT of the chest showed PE . The patient was started on Lovenox twice a day. Upon discharge, we want to switch him to Eliquis and Xarelto. We will have to check with the Pharmacy, see the and decide which medication he would be on. The patient understands if he goes on Xarelto, then we will do 50 mg twice a day fo r 21 days, then 20 mg once a day. If he goes on Eliquis, then the dose would be 10 mg twice a day fo r 7 days, then 5 mg twice a day after that. Again, given on the pharmacy co-payment , we w ill decide if the patient is going to go on Eliquis or Xarelto. The patient will be followed up with Dr. Cabrera who has seen him already as an outpatient. Hypercoagulable panel ordered given the selena ent's family history of factor V Leiden. I ordered a full panel to check for prothrombin gene mutati on, to check for protein S, protein C, also antithrombin III, factor VIII. Again, result will be fol lowed and discussed by Dr. Cabrera in the office. Discharge Condition: Stable. Discharge Diet: Regular. Discharge Followup: Follow up with Dr. Cabrera. Follow up with primary care physician in 1 week. F ollow up with Dr. Cabrera as he advised. Discharge Medications: Eliquis or Xarelto as I mentioned above given the insurance. Discharge Physical Examination: Vital Signs: Blood pressure is 121/81, respiratory rate 18, pulse 6 4, temperature 97.5. General: The patient is alert and oriented x3. Does not look in any distress. HEENT: Atraumatic, normocephalic. PERRLA. Oral mucosa is moist. Neck: Supple. No JVD. No carotid bruits. Chest: Clear to auscultation. Good air entry. Heart: Regular rate and rhythm. S1, S2 normal. No gallop or murmur. Abdomen: Soft, nontender. N o masses. No hepatosplenomegaly. Positive bowel sounds. EXTREMITIES: No clubbing, cyanosis, or edema. No calf tenderness. Neurologic: Grossly intact. I also advised the patient to ambulate if he is on a long trip, on a flight or driving, also advised him try to get some smoking. JEFF/WILVER Voice ID: [id number] Report ID: [id number]
[2018-01-23 13:26] LABS: Protein C Antigen 83 % (70-140)
== END 2018-01-20 16:48 | disposition home or self-care (01) ==
LOC: ER 14:05 → ERHOLD 17:34 → 4TH 19:53
PROVIDERS: ADMIT Internal Medicine; ATTEND Internal Medicine
DX: I82.442 Acute embolism and thrombosis of left tibial vein (principal); I26.99 Other pulmonary embolism without acute cor pulmonale; K21.9 Gastro-esophageal reflux disease without esophagitis; Z88.2 Allergy status to sulfonamides
CPT/HCPCS: 36415; 71275; 80048; 80053; 80076; 81003; 82550; 82553; 83735; 83880; 84484; 85025; 85300; 85301; 85302; 85305; 85306; 85384; 85610; 85730; 86038; 93005; 93971; 94760; 96372; 99285; G0378; J1650; J7030; Q9967

== ENCOUNTER 2019-02-03 15:28 | Observation (INO) | payer BC ==
--- OUTSIDE RECORDS SUMMARY | 2019-02-03 15:30 | XMS REPORT | Clinical Summary ---
:1975 Author Organization [facility] Address [address] [place] [address] Care Team Providers Name Role Phone Iqrau Halima Rutledge MD Primary Care Provider [phone] Allergies Active Allergy Reactions Severity Noted Date Comments Sulfa (Sulfonamide Antibiotics) 03/14/2016 Sulfamethoxazole-Trimethoprim Hives Medium 10/20/2016 Medications Medication Sig Dispensed Refills Start End Date Status Date rivaroxaban (XARELTO) Take 20 mg by 0 Active 20 mg tablet mouth daily. tamsulosin (FLOMAX) tamsulosin 0.4 0 05/24/20 Discontinued 0.4 mg mg capsule 18 capsule,extended release 24hr meloxicam (MOBIC) 15 meloxicam 15 30 tablet 2 05/24/20 Discontinued mg tabletIndications: mg tablet prn 8 18 Thoracolumbar back pain pain, Unspecified thoracic, thoracolumbar and lumbosacral intervertebral disc disorder, Radiculopathy of lumbar region clotrimazole-betametha Apply 30 g 3 05/24/20 Discontinued sone (LOTRISONE) topically 2 8 18 1-0.05 % (two) times a creamIndications: Rash day. clotrimazole-b etamethasone 1 %-0.05 % topical cream ibuprofen Take 1 tablet 30 tablet 0 05/24/20 Discontinued (ADVIL,MOTRIN) 800 MG (800 mg total) 8 18 tablet by mouth every 8 (eight) hours as needed for mild pain or moderate pain for up to 30 doses. docosahexanoic Take 1 tablet 0 05/28/20 Discontinued acid/epa (FISH OIL by mouth 2 18 ORAL) (two) times a day. butalbital-acetaminoph Take 1 tablet 120 tablet 0 06/27/20 en-caff (FIORICET, by mouth every 8 18 ESGIC) 50-325-40 mg 6 (six) hours per tablet as needed for headaches for up to 30 days. topiramate (TOPAMAX) Take 1 tablet 60 tablet 0 06/27/20 25 MG tablet (25 mg total) 8 18 by mouth 2 (two) times a day for 30 days. keTOROlac (TORadol) 10 Take 1 tablet 20 tablet 0 06/02/20 mg tablet (10 mg total) 8 18 by mouth every 6 (six) hours as needed for moderate pain for up to 5 days. pantoprazole Take 1 tablet 30 tablet 0 06/28/20 (PROTONIX) 40 MG EC (40 mg total) 8 18 tablet by mouth daily for 30 days. cyclobenzaprine Take 1 tablet 30 tablet 0 06/07/20 (FLEXERIL) 10 mg (10 mg total) 8 18 tablet by mouth 3 (three) times a day as needed for muscle spasms for up to 10 days. methylPREDNISolone follow package 21 tablet 0 06/02/20 (MEDROL DOSEPAK) 4 mg directions 8 18 tablet Active Problems Problem Noted Date Intractable headache 05/23/2018 Pedal edema 12/07/2016 Near syncope 12/07/2016 Bilateral edema of lower extremity 12/05/2016 Encounters Date Type Specialty Care Team Description 06/24/2018 Orders Only Hematology Gypsy Song MA Other specified diseases of blood and blood-forming organs (Primary Dx) 05/29/2018 Documentation General Internal Leela Mercado MD 05/28/2018 Anesthesia Event Radiology Murray Irvin MD 05/24/2018 Telephone Op[facility] Center, Ophthalmology - Clinical Care 05/23/2018 Hospital Encounter General Internal Judsno Goldberg, Acute intractable headache, unspecified headache type (Primary Dx); - Medicine Intractable tension-type headache, unspecified chronicity pattern 05/28/2018 Andreas Mena MD Arriaga, Michael, MD Gonzalez, Maria Guillermina, MD after 02/02/2018 Family History Medical History Relation Name Comments [...] Comments Brother age 61 Alive has had [place] and has stents age 55 Brother Alive [...] Assigned at Date Recorded Not on file Job Start Date Occupation Industry Not on file Not on file Not on file Travel History Travel Start Travel End No recent travel history available. Last Filed Vital Signs Vital Sign Reading Time Taken Blood Pressure 124/80 05/28/2018 7:40 PM BONUS CLERK Pulse 84 05/28/2018 7:40 PM BONUS CLERK Temperature 36.3 C (97.3 F) 05/28/2018 7:40 PM BONUS CLERK Respiratory Rate 20 05/28/2018 7:40 PM BONUS CLERK Oxygen Saturation 98% 05/28/2018 7:40 PM BONUS CLERK Inhaled Oxygen Concentration - - Weight 88.6 kg (195 lb 6.4 oz) 05/27/2018 3:58 AM BONUS CLERK Height 177.8 cm (5' 10") 05/23/2018 7:24 PM BONUS CLERK Body Mass Index 28.04 05/23/2018 7:24 PM BONUS CLERK Plan of Treatment Health Maintenance Due Date Last Done Comments INFLUENZA VACCINE 02/06/2019 Implants Implanted Type Area Wool [employer]ourer Device Shelf Model / Identifier Expiration Serial / Date Lot Device Vasclr Clsr Vasoactive Intstnl Peptd 6fr Angio-Seal - [id number] Cardiovascular N/A: 03/08/2019 [id number] / Implanted: 05/28/2018 (Quantity not on file) Implants N/A / [id number] Procedures Procedure Name Priority Date/Time Associated Comments Diagnosis IR 3D RECON SLICES Routine 05/28/2018 2:34 Results for this SNAPSHOTS RDMPS PM [facility]ONUS CLERK procedure are in the results section. IR ANGIOGRAM CEREBRAL Routine 05/28/2018 2:34 Results for this BILATERAL PM [facility] CLERK procedure are in the results section. CBC WITH PLATELET AND Routine 05/28/2018 4:40 Results for this DIFFERENTIAL AM [facility] procedure are in the results section. PERIPHERAL SMEAR Routine 05/28/2018 4:40 Results for this AM [facility] CLERK procedure are in the results section. D-DIMER Routine 05/28/2018 4:40 Results for this AM [facility] CLERK procedure are in the results section. ESTIMATED GFR Routine 05/28/2018 4:00 Results for this AM [facility] CLERK procedure are in the results section. BASIC METABOLIC PANEL Routine 05/28/2018 4:00 Results for this AM [facility] CLERK procedure are in the results section. IR LUMBAR PUNCTURE Routine 05/27/2018 12:37 Results for this PM [facility] procedure are in the results section. GLUCOSE LEVEL, CSF Routine 05/27/2018 12:33 Results for this PM [facility] procedure are in the results section. PROTEIN, CSF Routine 05/27/2018 12:33 Results for this PM [facility] procedure are in the results section. CSF CELL COUNT WITH Routine 05/27/2018 12:33 Results for this DIFFERENTIAL PM [facility] CL[facility] procedure are in the results section. GRAM STAIN Routine 05/27/2018 12:33 Results for this PM [facility] CLERK procedure are in the results section. CRYPTOCOCCAL ANTIGEN Routine 05/27/2018 12:33 Results for this SCREEN PM [facility] CL[facility] procedure are in the results section. AFB CULTURE Routine 05/27/2018 12:33 Results for this PM [facility] CL[facility] procedure are in the results section. CSF CULTURE Routine 05/27/2018 12:33 Results for this PM [facility] procedure are in the results section. HC COMPLETE BLD COUNT Routine 05/27/2018 5:26 Results for this W/AUTO DIFF AM [facility] procedure are in the results section. PROTHROMBIN TIME WITH Routine 05/27/2018 5:26 Results for this INR AM [facility] CLERK procedure are in the results section. FACTOR V LEIDEN BY PCR Routine 05/26/2018 5:21 Results for this AM [facility] CL[facility] procedure are in the results section. ESTIMATED GFR Routine 05/25/2018 5:42 Results for this AM [facility] CLERK procedure are in the results section. HEMOGLOBIN A1C Routine 05/25/2018 5:42 Results for this AM [facility] CLERK procedure are in the results section. BASIC METABOLIC PANEL Routine 05/25/2018 5:42 Results for this AM [facility] CLERK procedure are in the results section. HC COMPLETE BLD COUNT Routine 05/25/2018 5:42 Results for this W/AUTO DIFF AM [facility]US CLERK procedure are in the results section. DRVVC, DRVVT/DRVVC Routine 05/24/2018 11:18 Results for this AM [facility] CLERK procedure are in the results section. PROTHROMBIN TIME WITH Routine 05/24/2018 11:18 Results for this INR AM [facility]US CLERK procedure are in the results section. FUNCTIONAL PROTEIN S Routine 05/24/2018 11:18 Results for this AM [facility] CL[facility] procedure are in the results section. FUNCTIONAL PROTEIN C Routine 05/24/2018 11:18 Results for this AM [facility] procedure are in the results section. LUPUS ANTICOAGULANT Routine 05/24/2018 11:18 Results for this PANEL AM [facility]US CLERK procedure are in the results section. ANTITHROMBIN III LEVEL Routine 05/24/2018 11:18 Results for this AM [facility] procedure are in the results section. FACTOR V ASSAY Routine 05/24/2018 11:18 Results for this AM [facility] procedure are in the results section. BETA-2 GLYCOPROTEIN 1 Routine 05/24/2018 10:14 Results for this ANTIBODY, IGG AND IGM AM [facility] CLERK procedure are in the results section. CARDIOLIPIN ANTIBODIES Routine 05/24/2018 10:14 Results for this AM [facility] procedure are in the results section. MRI BRAIN W WO CONTRAST STAT 05/24/2018 8:30 Results for this AM [facility] procedure are in the results section. MRI BRAIN VENOGRAM STAT 05/24/2018 8:19 Results for this AM [facility] procedure are in the results section. ESTIMATED GFR Routine 05/24/2018 4:00 Results for this AM [facility] procedure are in the results section. BASIC METABOLIC PANEL Routine 05/24/2018 4:00 Results for this AM [facility] procedure are in the results section. CT ANGIOGRAM HEAD W WO STAT 05/23/2018 8:00 Results for this CONTRAST PM [facility]ERK procedure are in the results section. CT ANGIOGRAM NECK W WO STAT 05/23/2018 8:00 Results for this CONTRAST PM [facility]ERK procedure are in the results section. CT HEAD WO CONTRAST STAT 05/23/2018 8:00 Results for this PM [facility] procedure are in the results section. ESTIMATED GFR STAT 05/23/2018 7:45 Results for this PM [facility] procedure are in the results section. TYPE AND SCREEN Routine 05/23/2018 7:45 Results for this PM [facility] procedure are in the results section. COMPREHENSIVE METABOLIC STAT 05/23/2018 7:45 Results for this PANEL PM [facility] procedure are in the results section. PARTIAL THROMBOPLASTIN STAT 05/23/2018 7:45 Results for this TIME (PTT) PM [facility] procedure are in the results section. PROTHROMBIN TIME WITH STAT 05/23/2018 7:45 Results for this INR PM [facility] procedure are in the results section. HC COMPLETE BLD COUNT STAT 05/23/2018 7:45 Results for this W/AUTO DIFF PM [facility] procedure are in the results section. after 02/02/2018 Results IR 3D Recon Slices Snapshots RDMPS (05/28/2018 2:34 PM BONUS CLERK) Specimen Narrative Performed At Non-Reportable/No report needed. [facility] Performing Organization Address City/State/Zipcode Phone Number [facility] [address] [place] [address] IR Angiogram Cerebral (05/28/2018 2:34 PM BONUS CLERK) Specimen Narrative Performed At CEREBRAL ARTERIOGRAM [facility] FLUORO TIME : 4.2 Minutes [facility] EXPOSURE: SHERLYN 1846 mGy COMPARISON: CT angiogram of the head dated May 23, 2018 is available for comparison. CLINICAL HISTORY: 42-year-old with terrible headaches. Patient is here to rule out an intracranial aneurysm. TECHNIQUE: The risk and benefits of the procedure were explained to the patient. The risks include but are not limited to infection, hematoma, vascular damage, renal failure, stroke, worsening of the neurological condition and contrast reaction. Informed consent was obtained. Under neuroleptic anesthesia provided by Anesthesiology and utilizing a right femoral percutaneous approach, the following procedures were performed: Right common carotid injection neck examination in biplane projections. Selective right internal carotid injection head examination in biplane, obliques and magnification views. Selective right internal carotid injection head examination three-dimensional rotational views. Right external carotid injection head examination in biplane projections. Left common carotid injection neck examination in biplane projections. Selective left internal carotid injection head examination in biplane, obliques and magnification is views. Selective left internal carotid injection head examination three-dimensional rotational views. Left external carotid injection head examination in biplane projections. Selective left vertebral artery injection neck examination in biplane projections. Selective left vertebral artery injection head examination in biplane projections. Selective right vertebral artery injection neck examination in biplane projections. Selective right vertebral artery injection head examination in biplane projections. FINDINGS: The right common carotid injection neck examination demonstrate normal bifurcation without evidence of critical stenosis. The Right internal carotid injection head examination including the three-dimensional rotational views demonstrate normal antegrade flow into the intracranial circulation without evidence of focal stenosis, aneurysms or arteriovenous formations.The venous phase is within normal limits. The right external carotid injection head examination demonstrate normal branching without evidence of arteriovenous fistula. The left common carotid injection neck examination demonstrate normal bifurcation without evidence of critical stenosis. The left internal carotid injection head examination including the three-dimensional rotational views demonstrate normal antegrade flow into the intracranial circulation without evidence of focal stenosis, aneurysms or arteriovenous formations. The venous phase is within normal limits. The left external carotid injection head examination demonstrate normal branching without evidence of arteriovenous fistula. The left vertebral artery injection neck examination demonstrate normal vertebral artery without stenosis or dissections. The left vertebral artery injection head examination demonstrate normal antegrade flow into the intracranial circulation without evidence of focal stenosis, aneurysms or arteriovenous formations. The right vertebral artery injection neck examination demonstrate normal vertebral artery without stenosis or dissections. The right vertebral artery injection head examination demonstrate normal antegrade flow into the intracranial circulation without evidence of focal stenosis, aneurysms or arteriovenous formations. There were no complications during the procedure. At the end of the procedure the femoral sheath was removed and hemostasis was obtained using manual compression and Angio-Seal device. The patient was transferred to PACU without changes in the neurological status. IMPRESSION: 1. Negative cerebral arteriogram 2. Negative foraneurysms or arteriovenous malformations. 3. No complications. [facility]-[id number] Procedure Note [facility], Radiology Results Incoming - 05/28/2018 3:01 PM BONUS CLERK CEREBRAL ARTERIOGRAM FLUORO TIME : 4.2 Minutes [facility] EXPOSURE: SHERLYN 1846 mGy COMPARISON: CT angiogram of the head dated May 23, 2018 is available for comparison. CLINICAL HISTORY: 42-year-old with terrible headaches. Patient is here to rule out an intracranial aneurysm. TECHNIQUE: The risk and benefits of the procedure were explained to the patient. The risks include but are not limited to infection, hematoma, vascular damage, renal failure, stroke, worsening of the neurological condition and contrast reaction. Informed consent was obtained. Under neuroleptic anesthesia provided by Anesthesiology and utilizing a right femoral percutaneous approach, the following procedures were performed: Right common carotid injection neck examination in biplane projections. Selective right internal carotid injection head examination in biplane, obliques and magnification views. Selective right internal carotid injection head examination three-dimensional rotational views. Right external carotid injection head examination in biplane projections. Left common carotid injection neck examination in biplane projections. Selective left internal carotid injection head examination in biplane, obliques and magnification is views. Selective left internal carotid injection head examination three-dimensional rotational views. Left external carotid injection head examination in biplane projections. Selective left vertebral artery injection neck examination in biplane projections. Selective left vertebral artery injection head examination in biplane projections. Selective right vertebral artery injection neck examination in biplane projections. Selective right vertebral artery injection head examination in biplane projections. FINDINGS: The right common carotid injection neck examination demonstrate normal bifurcation without evidence of critical stenosis. The Right internal carotid injection head examination including the three- dimensional rotational views demonstrate normal antegrade flow into the intracranial circulation without evidence of focal stenosis, aneurysms or arteriovenous formations. The venous phase is within normal limits. The right external carotid injection head examination demonstrate normal branching without evidence of arteriovenous fistula. The left common carotid injection neck examination demonstrate normal bifurcation without evidence of critical stenosis. The left internal carotid injection head examination including the three- dimensional rotational views demonstrate normal antegrade flow into the intracranial circulation without evidence of focal stenosis, aneurysms or arteriovenous formations. The venous phase is within normal limits. The left external carotid injection head examination demonstrate normal branching without evidence of arteriovenous fistula. The left vertebral artery injection neck examination demonstrate normal vertebral artery without stenosis or dissections. The left vertebral artery injection head examination demonstrate normal antegrade flow into the intracranial circulation without evidence of focal stenosis, aneurysms or arteriovenous formations. The right vertebral artery injection neck examination demonstrate normal vertebral artery without stenosis or dissections. The right vertebral artery injection head examination demonstrate normal antegrade flow into the intracranial circulation without evidence of focal stenosis, aneurysms or arteriovenous formations. There were no complications during the procedure. At the end of the procedure the femoral sheath was removed and hemostasis was obtained using manual compression and Angio-Seal device. The patient was transferred to PACU without changes in the neurological status. IMPRESSION: 1. Negative cerebral arteriogram 2. Negative for aneurysms or arteriovenous malformations. 3. No complications. [facility]-[id number] Performing Organization Address City/State/Zipcode Phone Number [facility] [address] [place] [address] Peripheral smear (05/28/2018 4:40 AM BONUS CLERK) [facility] Peripheral smear Done [facility] Comment: HOSPITAL Peripheral smear is located in Hematology Laboratory, second floor of [facility]. Specimen Blood Performing Organization Address City/State/Zipcode Phone Number [facility] DEPARTMENT OF PATHOLOGY AND [address] [place] [id number] [place] [phone] D-dimer (05/28/2018 4:40 AM BONUS CLERK) [facility] D-dimer 0.53 (H) 0.00 - 0.40 [facility] Comment: ug/mL FEU HOSPITAL Units are ug/ml Fibrinogen Equivalent Unit. When combined with low clinical probability, D-dimer results of less than 0.5 ug/ml FEU have a good negativepredictive value in excluding PE or DVT. For D-dimer results greater than 0.5ug/ml FEU further testing is indicated if PE or DVT is suspectedclinically. Elevated D-dimer results have been reported in DVT, PE, and DIC cases and may indicate the presence of a clot. D-dimer results may be elevated due to old age, , inflammatory diseases, trauma, post-operative states, sepsis, and malignancies. Specimen Blood Performing Organization Address City/State/Zipcode Phone Number [facility] DEPARTMENT OF PATHOLOGY AND [address] [place] [id number] CBC with platelet and differential (05/28/2018 4:40 AM BONUS CLERK)Only the most recent of4 resultswithin the time period is included. [facility] WBC 5.30 4.50 - 11.00 [facility] k/uL [facility] RBC 4.57 4.40 - 6.00 [facility] m/[facility] HGB 15.2 14.0 - 18.0 [facility] g/dL [facility] HCT 43.0 41.0 - 51.0 % [facility] MCV 94.1 82.0 - 100.0 [facility] MCH 33.3 27.0 - 34.0 pg [facility] MCHC 35.3 31.0 - 37.0 [facility]/dL [facility] RDW - SD 42.5 37.0 - 55.0 [facility] MPV 9.5 8.8 - 13.2 fL [facility] Platelet count 248 150 - 400 k/uL [facility] Nucleated RBC 0.00 /100 WBC [facility] Neutrophils 44.2 39.0 - 69.0 % [facility] Lymphocytes 46.2 (H) 25.0 - 45.0 % [facility] Monocytes 7.5 0.0 - 10.0 % [facility] Eosinophils 0.9 0.0 - 5.0 % [facility] Basophils 0.8 0.0 - 1.0 % [facility] Immature granulocytes 0.4Comment: 0.0 - 1.0 % [facility] "[facility] granulocytes" (promyelocytes , myelocytes, metamyelocytes ) Specimen Blood Performing Organization Address City/[facility] Phone Number [facility] DEPARTMENT OF PATHOLOGY AND [address] [place] [address] Estimated GFR (05/28/2018 4:00 AM BONUS CLERK)Only the most recent of4 resultswithin the time period is included. Pathologist [facility] Estimated GFR 76 mL/min/1.73 [facility] Comment: HOSPITAL CatergoryUnitsInterpretation G1 >=90 Normal or high G2 60-89Mildly decreased [id number] to moderately decreased [id number] to severely decreased G4 15-29Severely decreased G5 <15Kidney failure The eGFR was calculated using the Chronic Kidney Disease Epidemiology Collaboration (CKD-EPI) equation. Interpretation is based on recommendations of the National Kidney Foundation-Kidney Disease Outcomes Quality Initiative (NKF-KDOQI) published in 2014. Specimen Plasma specimen Performing Organization Address City/[facility]/Zipcode Phone Number [facility] DEPARTMENT OF PATHOLOGY AND [address] [place] [address] Basic metabolic panel (05/28/2018 4:00 AM BONUS CLERK)Only the most recent of3 resultswithin the time period is included. [facility] Sodium 139 135 - 148 mEq/L [facility] Potassium 4.4 3.5 - 5.0 mEq/L [facility] Chloride 103 98 - 112 mEq/L [facility] CO2 22 (L) 24 - 31 mEq/L [facility] Anion gap 14@ANIO 7 - 15 mEq/L [facility] BUN 27 (H) 6 - 20 mg/dL [facility] Creatinine 1.17 0.70 - 1.20 mg/dL [facility] Glucose 91 65 - 99 mg/dL [facility] Calcium 9.1 8.3 - 10.2 mg/dL [facility] Specimen Plasma specimen Performing Organization Address City/State/Zipcode Phone Number [facility] DEPARTMENT OF PATHOLOGY AND [address] [place] [address] GENOMIC MEDICINE [facility] [address] [place] [phone] IR Lumbar Puncture by Radiology (05/27/2018 12:37 PM BONUS CLERK) Specimen Narrative Performed At EXAMINATION: IR LUMBAR PUNCTURE [facility] CLINICAL HISTORY: intractable LAZARO concern for PTC COMPARISON:None TECHNIQUE: Informed consent and a timeout was performed. The patient's lower back was prepped and draped in the usual sterile fashion. Fluoroscopy was used for image guidance for lumbar puncture. FINDINGS: 1% lidocaine was used for local anesthesia. Under direct fluoroscopic guidance, access to the thecal sac was made with a 22-gauge spinal needle at the L5-S1 level. Opening pressure measured 22 cm H2O. A total of approximately 25 cc of clear colorless CSF was removed. Additional CSF could not be collected. Closing pressure measured 12 cm H2O. The patient tolerated the procedure well. There were no complications. The sample was sent to the laboratory for analysis as requested. Total fluoroscopy time was less than 1 second.Total radiation dose is less than 1 mGy=Ka,r IMPRESSION: Successful fluoroscopic guided lumbar puncture as detailed above. [facility]-[id number] Procedure Note Interface, Radiology Results Incoming - 05/27/2018 1:08 PM BONUS CLERK EXAMINATION: IR LUMBAR PUNCTURE CLINICAL HISTORY: intractable LAZARO concern for PTC COMPARISON: None TECHNIQUE: Informed consent and a timeout was performed. The patient's lower back was prepped and draped in the usual sterile fashion. Fluoroscopy was used for image guidance for lumbar puncture. FINDINGS: 1% lidocaine was used for local anesthesia. Under direct fluoroscopic guidance , access to the thecal sac was made with a 22-gauge spinal needle at the L5-S1 level. Opening pressure measured 22 cm H2O. A total of approximately 25 cc of clear colorless CSF was removed. Additional CSF could not be collected. Closing pressure measured 12 cm H2O. The patient tolerated the procedure well. There were no complications. The sample was sent to the laboratory for analysis as requested. Total fluoroscopy time was less than 1 second. Total radiation dose is less than 1 mGy=Ka,r IMPRESSION: Successful fluoroscopic guided lumbar puncture as detailed above. [facility]-[id number] Performing Organization Address City/[facility]/Zipcode Phone Number [address] [address] AFB culture (05/27/2018 12:33 PM BONUS CLERK) AFB culture No growth after 6 weeks of incubation. [facility] isolate Comment: HOSPITAL Specimen Information Specimen Source: CSF (Spinal Fluid) Specimen Site: CSF (spinal fluid) Specimen Cerebrospinal fluid - CSF (spinal fluid) Performing Organization Address [facility] Phone Number [facility] DEPARTMENT OF PATHOLOGY AND [address] [place] [phone] [address] Cryptococcal antigen, screen (05/27/2018 12:33 PM BONUS CLERK) Pathologist [facility] Cryptococcal Ag Negative - No Cryptococcus antigen detected. [facility] Comment: HOSPITAL Specimen Information Specimen Source: CSF (Spinal Fluid) Specimen Site: CSF (spinal fluid) Specimen Cerebrospinal fluid - CSF (spinal fluid) Performing Organization Address [facility] [place] Phone Number [facility] DEPARTMENT OF PATHOLOGY AND [address] [place] [phone] [address] Gram stain (05/27/2018 12:33 PM BONUS CLERK) Pathologist [facility] Gram stain isolate No WBC's or organisms seen. [facility] Comment: HOSPITAL Specimen Information Specimen Source: CSF (Spinal Fluid) Specimen Site: CSF (spinal fluid) Specimen Cerebrospinal fluid - CSF (spinal fluid) Performing Organization Address [facility] Phone Number [facility] DEPARTMENT OF PATHOLOGY AND [address] [place] [phone] [address] CSF culture (05/27/2018 12:33 PM BONUS CLERK) CSF culture No growth after 3 days. [facility] isolate Comment: HOSPITAL Specimen Information Specimen Source: CSF (Spinal Fluid) Specimen Site: CSF (spinal fluid) Specimen Cerebrospinal fluid - CSF (spinal fluid) Performing Organization Address City/[facility] Phone Number [facility] DEPARTMENT OF PATHOLOGY AND [address] [place] [phone] [place] [address] CSF cell count with differential (05/27/2018 12:33 PM BONUS CLERK) Color, CSF Colorless [facility] Appearance, CSF Clear [facility] RBC, CSF 0 0 - 1 /CMM [facility] WBC, CSF 0 0 - 5 /CMM [facility] CSF mononuclear cell 0/CMM [facility] Specimen Cerebrospinal fluid Performing Organization Address City/[facility] Phone Number [facility] DEPARTMENT OF PATHOLOGY AND [address] [place] [phone] [place] [address] Protein, CSF (05/27/2018 12:33 PM BONUS CLERK) Protein, CSF 35 15 - 45 mg/dL [facility] Specimen Cerebrospinal fluid Performing Organization Address [facility] [place] Phone Number [facility] DEPARTMENT OF PATHOLOGY AND [address] [place] [phone] [address] Glucose level, CSF (05/27/2018 12:33 PM BONUS CLERK) Glucose, CSF 56 40 - 70 mg/dL [facility] Specimen Cerebrospinal fluid Performing Organization Address City/[facility] [place] Phone Number [facility] DEPARTMENT OF PATHOLOGY AND [address] [place] [address] Prothrombin time with INR (05/27/2018 5:26 AM BONUS CLERK)Only the most recent of3 resultswithin the time period is included. Prothrombin time 13.4 11.5 - 14.5 [facility] INR 1.0 [place] Comment: [facility] International Normalized Ratio (INR) is a therapeutic HOSPITAL monitoring tool for patients who are stable on oral anticoagulant therapy. An INR of 2.0-3.0 is suggested for deep vein thrombosis/pulmonary embolism. Specimen Blood Performing Organization Address City/[facility] Phone Number [facility] DEPARTMENT OF PATHOLOGY AND [address] [place] [address] Factor V leiden by PCR (05/26/2018 5:21 AM BONUS CLERK) Factor V Leiden Normal [facility] Factor V Leiden See link below [facility] for PDF Lab HOSPITAL ReportComment: Specimen Blood Performing Organization Address City/State/Zipcode Phone Number [facility] DEPARTMENT OF PATHOLOGY AND [address] [place] [address] Hemoglobin A1c (05/25/2018 5:42 AM BONUS CLERK) [facility] Hemoglobin A1C 5.5 4.0 - 5.6 % [facility] Comment: HOSPITAL HbA1c cutoffs for diagnosing diabetes: 4.0% - 5.6%=normal 5.7% - 6.4%=increased risk for diabetes (prediabetes) >=6.5%=diabetes Goals for glycemic control (ADA 2016) < 7.0%Target for non adults with diabetes. More or less stringent targets may be appropriate for individual patients. <7.5% Target for Children and adolescents with type 1 diabetes. Specimen Blood Performing Organization Address City/State/Zipcode Phone Number [facility] DEPARTMENT OF PATHOLOGY AND [address] [place] [address] DRVVC, DRVVT/DRVVC (05/24/2018 11:18 AM BONUS CLERK) [facility] DRVVT 54.3 (H) 29.0 - 46.0 sec [facility] DRVVC 47.1 sec [facility] DRVVT/DRVVC ratio 1.15 0.00 - 1.22 sec [facility] Specimen Blood Performing Organization Address City/State/Zipcode Phone Number [facility] DEPARTMENT OF PATHOLOGY AND [address] [place] [address] Functional protein S (05/24/2018 11:18 AM BONUS CLERK) [facility] Functional protein 111 74 - 160 % [facility] Comment: HOSPITAL Functional Protein S performed.If result is decreased Total and Free Protein S Antigen will be performed. Specimen Blood Performing Organization Address City/[facility] Phone Number [facility] DEPARTMENT OF PATHOLOGY AND [address] [place] [phone] [place] [phone] Functional protein C (05/24/2018 11:18 AM BONUS CLERK) [facility] Functional protein C 89 70 - 165 % [facility] Specimen Blood Performing Organization Address City/[facility] [place] Phone Number [facility] DEPARTMENT OF PATHOLOGY AND [address] [place] [address] Lupus anticoagulant panel (05/24/2018 11:18 AM BONUS CLERK) [facility] Prothrombin time 18.7 (H) 11.5 - 14.5 [facility] INR 1.6 [place] Comment: [facility] The International Normalized Ratio (INR) is a therapeutic HOSPITAL monitoring tool for patients who are stable on oral anticoagulant therapy. An INR of 2.0-3.0 is suggested for deep vein thrombosis/pulmonary embolism. PTT 33.7 23.0 - 36.0 [place] Comment: [facility] PTT therapeutic range for unfractionated heparin is HOSPITAL 61.0-112.0 seconds which corresponds to Anti-Xa 0.3-0.7 U/ml. PTT lupus 33.7 27.0 - 38.0 [place] anticoagulant Comment: [facility] Lupus anticoagulant (LA) panel consists of PT, PTT, PTT-LA, HOSPITAL and DRVVT. If the PTT-LA is above the normal range, the hexagonal phospholipid will be performed. If the DRVVT is above the normal range, the DRVVC confirmatory test will be performed. A normal result for both the DRVVT and the PTT-LA means the patient is negative for lupus anticoagulant. The patient is considered positive for lupus anticoagulant if either the Ratio SCR/CONF or the hexagonal phospholipid is high (positive) on two occassions at least six weeks apart. Clinical confirmation is also required for diagnosis. DRVVT 54.3 (H) 29.0 - 46.0 [facility] Specimen Blood Performing Organization Address [facility]ode Phone Number [facility] DEPARTMENT OF PATHOLOGY AND [address] [place] [address] [place] [address] Antithrombin III level (05/24/2018 11:18 AM BONUS CLERK) Antithrombin III 89 80 - 130 % [facility] Specimen Blood Performing Organization Address City/[facility] Phone Number [facility] DEPARTMENT OF PATHOLOGY AND [address] [place] [phone] [address] Factor V assay (05/24/2018 11:18 AM BONUS CLERK) Factor V activity 106 70 - 145 % [facility] Specimen Blood Performing Organization Address City/[facility] Centercout Phone Number [facility] DEPARTMENT OF PATHOLOGY AND [address] [place] [phone] [place] [address] Beta-2 glycoprotein 1 antibody, IgG and IgM (05/24/2018 10:14 AM BONUS CLERK) Beta-2 glycoprotein 1 <9.4 0.0 - 20.0 [facility] antibody, IgG Comment: HOSPITAL Negative=<20.0 [facility] Positive >20.0 [facility] Beta-2 glycoprotein 1 <9.4 0.0 - 20.0 [facility] antibody, IgM Comment: HOSPITAL Negative=<20.0 [facility] Positive >20.0 [facility] Specimen Blood Performing Organization Address City/[facility] [place] Phone Number [facility] DEPARTMENT OF PATHOLOGY AND [address] [place] [phone] [address] Cardiolipin antibodies (05/24/2018 10:14 AM BONUS CLERK) Cardiolipin IgG 1 0 - 14 GPL [facility] Comment: HOSPITAL Negative=<15 GPL Indeterminate=15-20 GPL Positive=>20 GPL Cardiolipin IgM 7 0 - 12 MPL [facility] Comment: HOSPITAL Negative=<13 MPL Indeterminate=13-20 MPL Positive=>20 MPL Specimen Blood Performing Organization Address [facility] Phone Number [facility] DEPARTMENT OF PATHOLOGY AND [address] [place] [phone] [address] MRI Brain W Wo Contrast (05/24/2018 8:30 AM BONUS CLERK) Specimen Narrative Performed At EXAMINATION: MRI BRAIN W WO CONTRAST [facility] CLINICAL HISTORY: headache COMPARISON:CT brain from yesterday. TECHNIQUE: Multiplanar and multisequence MRI imaging of the brain was obtained with and without contrast. FINDINGS: There is no evidence of acute infarct, intracranial hemorrhage or mass, hydrocephalus or midline shift. There are no areas of abnormal enhancement in the brain or extra region. There is mild nonspecific enlargement of the extra axial space greater in the anterior region. The sella is partially empty. The right cerebellar tonsil protrudes just below the level of the foramen magnum with normal shape. The left cerebellar tonsil extends down to the level of the foramen magnum. The orbits, sinuses and mastoid air cells do not show significant abnormality. The nasal septum is slightly deviated. IMPRESSION: No acute findings in the brain or extra-axial region. [id number] Procedure Note Interface, Radiology Results Incoming - 05/24/2018 8:35 AM BONUS CLERK EXAMINATION: MRI BRAIN W WO CONTRAST CLINICAL HISTORY: headache COMPARISON: CT brain from yesterday. TECHNIQUE: Multiplanar and multisequence MRI imaging of the brain was obtained with and without contrast. FINDINGS: There is no evidence of acute infarct, intracranial hemorrhage or mass, hydrocephalus or midline shift. There are no areas of abnormal enhancement in the brain or extra region. There is mild nonspecific enlargement of the extra axial space greater in the anterior region. The sella is partially empty. The right cerebellar tonsil protrudes just below the level of the foramen magnum with normal shape. The left cerebellar tonsil extends down to the level of the foramen magnum. The orbits, sinuses and mastoid air cells do not show significant abnormality. The nasal septum is slightly deviated. IMPRESSION: No acute findings in the brain or extra-axial region. [id number] Performing Organization Address City/State/Zipcode Phone Number [facility] [address] [place] [address] MRI Brain Venogram (05/24/2018 8:19 AM BONUS CLERK) Specimen Narrative Performed At EXAMINATION:MRI BRAIN VENOGRAM [facility] CLINICAL HISTORY:Headachechronicnormal neuro exam COMPARISON:CT angiogram of the brain and CT brain from May 23, 2018. FINDINGS: There is no evidence of recent superficial or deep venous sinus thrombosis. There is asymmetric dominant superficial and deep venous drainage to the right transverse and sigmoid sinuses. 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 IMPRESSION: No evidence of acute superficial or deep venous sinus thrombosis. 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 [facility]-[id number] Procedure Note Interface, Radiology Results Incoming - 05/24/2018 8:25 AM BONUS CLERK EXAMINATION: MRI BRAIN VENOGRAM CLINICAL HISTORY: Headache chronic normal neuro exam COMPARISON: CT angiogram of the brain and CT brain from May 23, 2018. FINDINGS: There is no evidence of recent superficial or deep venous sinus thrombosis. There is asymmetric dominant superficial and deep venous drainage to the right transverse and sigmoid sinuses. 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 IMPRESSION: No evidence of acute superficial or deep venous sinus thrombosis. 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 [facility]-[id number] Performing Organization Address City/State/Zipcode Phone Number [facility] [address] [place] [address] CTA Neck W Wo Contrast (05/23/2018 8:00 PM BONUS CLERK) Specimen Narrative Performed At EXAMINATION:CT [facility]:SAH suspectedinitial exam TECHNIQUE: CT angiography of the neck was performed using 1.25 mm thick axial slices and reviewed in multiple planes. Two and three dimensional multiplanar reformatted images were generated and submitted to PACS.3-D rendering was performed with physician participation and supervision. CT imaging was performed with iterative reconstruction technique and/or automated exposure control to reduce radiation dose. A total of 75 mL Visipaque 320 was injected intravenously. COMPARISON: None. FINDINGS: There is venous contamination. CTA of the neck demonstrates that the origins of the great vessels are widelypatent. Left vertebral artery arises from the aortic arch, anatomic variant.There is no evidence of significant extra cranial stenosis.0% stenosis of the cervical internal carotid arteries by NASCET criteria.No aneurysm is seen. Subtle irregularity of portions of the cervical internal carotid arteries is felt to be artifactual. There is fusion of C5-C6 vertebral bodies. IMPRESSION: No evidence of significant extracranial stenosis. [facility]-[id number] Procedure Note Interface, Radiology Results Incoming - 05/23/2018 8:47 PM BONUS CLERK EXAMINATION: CT ANGIOGRAM NECK W WO CONTRAST CLINICAL HISTORY: SAH suspected initial exam TECHNIQUE: CT angiography of the neck was performed using 1.25 mm thick axial slices and reviewed in multiple planes. Two and three dimensional multiplanar reformatted images were generated and submitted to PACS. 3-D rendering was performed with physician participation and supervision. CT imaging was performed with iterative reconstruction technique and/or automated exposure control to reduce radiation dose. A total of 75 mL Visipaque 320 was injected intravenously. COMPARISON: None. FINDINGS: There is venous contamination. CTA of the neck demonstrates that the origins of the great vessels are widely patent. Left vertebral artery arises from the aortic arch, anatomic variant. There is no evidence of significant extra cranial stenosis. 0% stenosis of the cervical internal carotid arteries by NASCET criteria. No aneurysm is seen. Subtle irregularity of portions of the cervical internal carotid arteries is felt to be artifactual. There is fusion of C5-C6 vertebral bodies. IMPRESSION: No evidence of significant extracranial stenosis. [facility]-[id number] Performing Organization Address City/State/Zipcode Phone Number [facility] [address] [place] [address] CT Head Wo Contrast (05/23/2018 8:00 PM BONUS CLERK) Specimen Narrative Performed At EXAM: CT HEAD WO CONTRAST [facility] CLINICAL HISTORY: Headacheacutesevereworst LAZARO of life TECHNIQUE: Noncontrast enhanced images of the brain were obtained from the skull base to the vertex. Both soft tissue and bone reconstruction algorithms were performed. CT scans are performed using radiation dose reduction techniques (iterative reconstruction and/or automated exposure control). Technical factors are evaluated and adjusted to ensure appropriate moderation of exposure. Automated dose management technology is applied to adjust radiation exposure while achieving a diagnostic quality image. COMPARISON:None. FINDINGS: The swenson-white matter differentiation is preserved and without evidence of acute territorial infarction. There is no evidence for acute intracranial hemorrhage, mass, mass effect, hydrocephalus, or extra-axial fluid collection. Orbits are unremarkable.Paranasal sinuses are clear.Mastoid air cells are normally pneumatized.Osseous structures are intact. IMPRESSION: No CT evidence for acute intracranial abnormality. [facility]-[id number] Procedure Note Interface, Radiology Results Incoming - 05/23/2018 8:27 PM BONUS CLERK EXAM: CT HEAD WO CONTRAST CLINICAL HISTORY: Headache acute severe worst LAZARO of life TECHNIQUE: Noncontrast enhanced images of the brain were obtained from the skull base to the vertex. Both soft tissue and bone reconstruction algorithms were performed. CT scans are performed using radiation dose reduction techniques (iterative reconstruction and/or automated exposure control). Technical factors are evaluated and adjusted to ensure appropriate moderation of exposure. Automated dose management technology is applied to adjust radiation exposure while achieving a diagnostic quality image. COMPARISON: None. FINDINGS: The swenson-white matter differentiation is preserved and without evidence of acute territorial infarction. There is no evidence for acute intracranial hemorrhage, mass, mass effect, hydrocephalus, or extra-axial fluid collection. Orbits are unremarkable. Paranasal sinuses are clear. Mastoid air cells are normally pneumatized. Osseous structures are intact. IMPRESSION: No CT evidence for acute intracranial abnormality. [facility]-[id number] Performing Organization Address City/State/Zipcode Phone Number [facility] [address] [place] [address] CTA Head W Wo Contrast (05/23/2018 8:00 PM BONUS CLERK) Specimen Narrative Performed At EXAMINATION: CT ANGIOGRAM HEAD W WO CONTRAST [facility] CLINICAL HISTORY: Headacheacutesevereworst ALZARO of life COMPARISON:None TECHNIQUE:Imaging of the intracranial circulation was obtained from the skull base to the vertex during the arterial phase of enhancement. Postprocessing was performed with MIP multiplanar and 3D reconstructed images.CT imaging was performed with iterative reconstruction technique and/or automated exposure control to reduce radiation dose. FINDINGS: No focal stenosis or aneurysm of the anterior or posterior intracranial circulation. Limited examination of the brain demonstrates no evidence of acute intracranial abnormality. IMPRESSION: 1. No focal stenosis or aneurysm of the intracranial circulation. [facility]-[id number] Procedure Note Interface, Radiology Results Incoming - 05/23/2018 8:44 PM BONUS CLERK EXAMINATION: CT ANGIOGRAM HEAD W WO CONTRAST CLINICAL HISTORY: Headache acute severe worst LAZARO of life COMPARISON: None TECHNIQUE: Imaging of the intracranial circulation was obtained from the skull base to the vertex during the arterial phase of enhancement. Postprocessing was performed with MIP multiplanar and 3D reconstructed images. CT imaging was performed with iterative reconstruction technique and/or automated exposure control to reduce radiation dose. FINDINGS: No focal stenosis or aneurysm of the anterior or posterior intracranial circulation. Limited examination of the brain demonstrates no evidence of acute intracranial abnormality. IMPRESSION: 1. No focal stenosis or aneurysm of the intracranial circulation. [facility]-[id number] Performing Organization Address [facility] Phone Number [facility] [address] [place] [address] Partial thromboplastin time, activated (05/23/2018 7:45 PM BONUS CLERK) Pathologist [facility] PTT 28.2 23.0 - 36.0 [facility] Comment: [facility] PTT therapeutic range for unfractionated heparin is 61.0-112.0 seconds which corresponds to Anti-Xa 0.3-0.7 U/ml. Specimen Blood Performing Organization Address City/[facility] Phone Number [facility] DEPARTMENT OF PATHOLOGY AND [address] [place] [phone] [place] [phone] Type and screen (05/23/2018 7:45 PM BONUS CLERK) Pathologist [facility] ABO grouping A [facility] Rh type POS [facility] Antibody screen (gel) NEG [facility] Specimen Blood Performing Organization Address [facility] [place] Phone Number [facility] DEPARTMENT OF PATHOLOGY AND [address] [place] [phone] [place] [address] Comprehensive metabolic panel (05/23/2018 7:45 PM BONUS CLERK) [facility] Sodium 141 135 - 148 [facility] mEq/L [facility] Potassium 3.8 3.5 - 5.0 [facility] mEq/L [facility] Chloride 103 98 - 112 mEq/L [facility] CO2 22 (L) 24 - 31 mEq/L [facility] Anion gap 16@ANIO (H) 7 - 15 mEq/L [facility] BUN 25 (H) 6 - 20 mg/dL [facility] Creatinine 1.08 0.70 - 1.20 [facility] mg/dL HOSPITAL Glucose 142 (H) 65 - 99 mg/dL [facility] Calcium 9.4 8.3 - 10.2 [facility] mg/dL HOSPITAL Protein 7.0 6.3 - 8.3 g/dL [facility] Comment: HOSPITAL [place] 4.6-7.0 g/dL 1 week 4.4-7.6 g/dL 7 months-1year5.1-7.3 g/dL 1-2 years5.6-7.5 g/dL >3 years6.0-8.0 g/dL 18-150 6.3-8.3 g/dL Albumin 3.8 3.5 - 5.0 g/dL [facility] A/G ratio 1.2 0.7 - 3.8 [facility] Alkaline phosphatase 53 40 - 129 U/L [facility] AST 38 10 - 50 U/L [facility] ALT 49 5 - 50 U/L [facility] Total bilirubin 0.4 0.0 - 1.2 [facility] mg/dL HOSPITAL Specimen Plasma specimen Performing Organization Address City/State/Zipcode Phone Number [facility] DEPARTMENT OF PATHOLOGY AND [address] [place] [address] GENOMIC MEDICINE [address] [address] after 02/02/2018 ([place]) [place] [address] Advance Directives Patient has advance care planning documents on file. For more information, please contact:[address] [address]
[2019-02-03] MEDS ORDERED: ASPIRIN 81 MG CHEWABLE TABLET ONE (16:09)
[2019-02-03] MEDS ORDERED: NITROGLYCERIN 0.4 MG/TAB SL ONE (16:09)
[2019-02-03] MEDS ORDERED: NA CHLORIDE 0.9% 1,000 ML ONE (16:09)
[2019-02-03 16:18] LABS: Absolute Lymphocytes (CBC) 2.3 K/uL (0.7-4.9); Basophils % 1.3 % (0-1.3); Hematocrit 41.9 % (39.6-49.0); Lymphocytes % 49.6 % (15.3-44.8); MPV 7.8 fL (7.6-11.3); RBC Red Blood Cell Count 4.28 M/uL (4.33-5.43)
[2019-02-03 16:36] LABS: Protime INR 1.04
[2019-02-03 16:41] LABS: ALT/SGPT 32 U/L (12-78); AST/SGOT 21 U/L (15-37); Albumin 3.7 g/dL (3.4-5.0); Alkaline Phosphatase 54 U/L (45-117); BUN Blood Urea Nitrogen 17 mg/dL (7-18); Bicarbonate 25 mmol/L (21-32); Bilirubin Direct 0.2 mg/dL (0-0.2); Bilirubin Total 0.7 mg/dL (0.2-1.0); Glucose Level 117 mg/dL (74-106); Magnesium 2.3 mg/dL (1.8-2.4); NT PRO-BNP 26 pg/mL (<125); Potassium 3.6 mmol/L (3.5-5.1); Protein, Total 7.1 g/dL (6.4-8.2); Sodium Level 142 mmol/L (136-145); Troponin (Emerg Dept Use Only) < 0.02 ng/mL (0.0-0.045)
--- NOTE | 2019-02-03 16:44 | RAD REPORT ---
EXAM DESCRIPTION: Sunny Single View02/03/2019 4:20 pm CLINICAL HISTORY: Chest pain COMPARISON: 2016 FINDINGS: The lungs appear clear of acute infiltrate. The heart is normal size IMPRESSION: No acute abnormalities displayed
[2019-02-03] MEDS ORDERED: ONDANSETRON 4 MG/2 ML VIAL IV PRN (19:34)
[2019-02-03] MEDS ORDERED: ACETAMINOPHEN 500 MG TAB PO PRN (19:34)
--- NOTE | 2019-02-03 19:37 | RAD REPORT ---
EXAM DESCRIPTION: CT - Chest For Pe Angio - 02/03/2019 7:16 pm CLINICAL HISTORY: Chest pain COMPARISON: January 2018 TECHNIQUE: Dynamically enhanced axial 3 mm thick images of the chest were obtained during administra tion of <100> mL Isovue 370 IV contrast. Coronal and oblique reconstruction images were generated and reviewed. Exam utilizes a protocol for optimal evaluation of pulmonary arterial tree. Maximum intensity projections 3D imaging was utilized All CT scans are performed using dose optimization technique as appropriate and may include automated exposure control or mA/KV adjustment according to patient size. FINDINGS: A small amount of thrombus is present within right lower lobe pulmonary artery branches. S ome of it is peripheral and appears chronic. A small amount appears acute. No thrombus within the main, right and left main and left pulmonary arteries A thoracic aortic aneurysm is not noted. A pleural effusion is not seen. A pericardial effusion is not seen. A lung consolidation is not present. IMPRESSION: Small amount of right lower lobe pulmonary artery embolism. 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
--- NOTE | 2019-02-03 19:46 | ER ---
Nurse's Notes [facility] Name: Samson Moreno Age: 43 yrs Sex: Male : 1975 Arrival Date: 02/03/2019 Time: 15:28 Bed 19 Private MD: Dylan Rodriguez V Diagnosis: Pulmonary embolism;Chest pain, unspecified Presentation: 02/03 15:31 Presenting complaint: Patient states: Left side chest pain and left arm pain with aj radiation to neck and back that started this AM. Transition of care: patient was not received from another setting of care. Onset of symptoms was February 03, 2019. Risk Assessment: Do you want to hurt yourself or someone else? Patient reports no desire to harm self or others. Initial Sepsis Screen: Does the patient meet any 2 criteria? No. Patient's initial sepsis screen is negative. Does the patient have a suspected source of infection? No. Patient's initial sepsis screen is negative. Care prior to arrival: None. 15:31 Method Of Arrival: Ambulatory aj 15:31 Acuity: JEANA 2 aj Triage Assessment: 15:32 General: Appears in no apparent distress. comfortable, Behavior is calm, cooperative, aj appropriate for age. Neuro: Level of Consciousness is awake, alert, obeys commands, Oriented to person, place, time, situation, Appropriate for age. Cardiovascular: Reports chest pain, Capillary refill < 3 seconds in bilateral fingers Patient's skin is warm and dry. Chest pain is described as diffuse, is located in left chest wall radiates to left arm(s) back neck. Respiratory: Airway is patent Respiratory effort is even, unlabored, Respiratory pattern is regular, symmetrical. Derm: Skin is intact, is healthy with good turgor, Skin is pink, warm \T\ dry. normal. Historical: - Allergies: 15:32 Sulfa (Sulfonamide Antibiotics); aj - PMHx: 15:32 GERD; DVT; aj - PSHx: 15:32 Vasectomy; aj - Immunization history:: Adult Immunizations up to date. - Social history:: Smoking status: Patient/guardian denies using tobacco. - Ebola Screening: : Patient negative for fever greater than or equal to 101.5 degrees Fahrenheit, and additional compatible Ebola Virus Disease symptoms Patient denies exposure to infectious person Patient denies travel to an Ebola-affected area in the 21 days before illness onset No symptoms or risks identified at this time. Screenin:19 Abuse screen: Denies threats or abuse. Denies injuries from another. Nutritional sg screening: No deficits noted. Tuberculosis screening: No symptoms or risk factors identified. Never had TB. Fall Risk None identified. Assessment: 15:45 General: Appears in no apparent distress. well groomed, well developed, well nourished, sg Behavior is calm, cooperative, appropriate for age. Pain: Complains of pain in chest Quality of pain is described as aching. Neuro: Level of Consciousness is awake, alert, obeys commands, Oriented to person, place, time, Job Coach/Job Developer are equal bilaterally Moves all extremities. Facial symmetry appears normal. Cardiovascular: Capillary refill is brisk in bilateral fingers Patient's skin is warm and dry. Chest pain is described as vague, is located in anterior chest wall. Respiratory: Airway is patent Respiratory effort is even, unlabored, Respiratory pattern is regular, symmetrical. GI: Abdomen is round non-distended, Reports normal bowel habits, tolerance of fluids, tolerance of food. : No signs and/or symptoms were reported regarding the genitourinary system. EENT: No signs and/or symptoms were reported regarding the EENT system. Derm: Skin is pink, warm \T\ dry. Musculoskeletal: No signs and/or symptoms reported regarding the musculoskeletal system. 16:18 Reassessment: Patient appears in no apparent distress at this time. sg 19:32 General: Appears in no apparent distress. comfortable, well groomed, well developed, ao Behavior is calm, cooperative, appropriate for age. Pain: Complains of pain in chest Pain does not radiate. Pain Pain began suddenly. Neuro: Level of Consciousness is awake, alert, obeys commands, Oriented to person, place, time, Job Coach/Job Developer are equal bilaterally Moves all extremities. Full function Facial symmetry appears normal. Cardiovascular: Capillary refill is brisk in bilateral fingers Patient's skin is warm and dry. Chest pain is described as vague, is located in anterior chest wall. Respiratory: Airway is patent Respiratory effort is even, unlabored, Respiratory pattern is regular, symmetrical. GI: Abdomen is round non-distended, Reports normal bowel habits, tolerance of fluids, tolerance of food. : No signs and/or symptoms were reported regarding the genitourinary system. EENT: No signs and/or symptoms were reported regarding the EENT system. Derm: Skin is pink, warm \T\ dry. Skin temperature is warm. Musculoskeletal: No signs and/or symptoms reported regarding the musculoskeletal system. 20:28 Reassessment: Called 4[address] Fl to give report and nurse was busy and will call back. ao Vital Signs: 15:32 BP 154 / 99; Pulse 73; Resp 16; Temp 98.5; Pulse Ox 98% on R/A; Weight 95.25 kg; Height aj 5 ft. 10 in. (177.80 cm); 16:17 BP 138 / 88; Pulse 62; Pulse Ox 98% on R/A; sg 16:45 BP 131 / 87; Pulse 59; Resp 17; Pulse Ox 99% on R/A; sg 17:20 BP 140 / 98; Pulse 55; Resp 17; Pulse Ox 99% on R/A; sg 18:33 BP 141 / 98; Pulse 62; Resp 17; Pulse Ox 100% on R/A; sg 19:38 BP 150 / 110; Pulse 74; Resp 16; Pulse Ox 100% ; ao 15:32 Body Mass Index 30.13 (95.25 kg, 177.80 cm) aj ED Course: 15:28 Patient arrived in ED. as 15:29 Dylan Rodriguez MD is Private Physician. as 15:32 Triage completed. aj 15:32 Arm band placed on right wrist. Patient placed in an exam room. aj 15:34 Kieran Mandel PA is PHCP. cp 15:34 Kieran Walsh MD is Attending Physician. cp 15:35 Yao Pittman, LINA is Primary Nurse. sg 15:45 Patient has correct armband on for positive identification. Bed in low position. Call sg light in reach. Side rails up X2. telemetry monitor on. Pulse ox on. NIBP on. Warm blanket given. Head of bed elevated. 15:48 EKG done, by missile and missile checkout technician. reviewed by Kieran RANGEL. 3 16:00 Initial lab(s) drawn, by me, sent to lab. Inserted saline lock: 20 gauge in right sg antecubital area, using aseptic technique. Blood collected. Patient maintains SpO2 saturation greater than 95% on room air. 16:24 XRAY Chest (1 view) In Process Unspecified. EDMS 19:[address] via stretcher. eh 19:18 CT completed. Patient tolerated procedure well. Patient moved back from CT. 19:19 CT Chest For PE Angio In Process Unspecified. EDMS 19:44 Dylan Rodriguez MD is Hospitalizing Provider. cp 21:23 No provider procedures requiring assistance completed. Patient admitted, IV remains in ao place. Administered Medications: 16:00 Drug: NS 0.9% 1000 ml Route: IV; Rate: 1 bolus; Site: right antecubital; sg 20:46 Follow up: IV Status: Completed infusion; IV Intake: 1000ml ao 16:00 Drug: Nitroglycerin 0.4 mg Route: Sublingual; sg 16:25 Follow up: Response: No adverse reaction; Pain is unchanged, physician notified; Blood sg pressure is lowered 20:46 Follow up: Response: No adverse reaction ao 16:17 Not Given (pt was given 4 baby aspirin TONGUE PRESSER by clinic): Aspirin Chewable Tablet 324 mg sg PO once; 81 mg tablets x 4 20:06 Drug: Lovenox 1 mg/kg Route: Sub-Q; Site: abdomen; ao 20:47 Follow up: Response: No adverse reaction ao Intake: 20:46 IV: 1000ml; Total: 1000ml. ao Outcome: 19:44 Decision to Hospitalize by Provider. cp 21:23 Admitted to Tele accompanied by tech, room 414. ao 21:23 Condition: stable 21:23 Instructed on the need for admit. 21:24 Patient left the ED. ao Signatures: Dispatcher [employer] EDMS Yao Pittman RN RN sg Myers, Amanda, RN RN aj Hagler, Ervin eh Martinez, Amelia as Page, Corey, PA PA cp Ortiz, Alex RN Damaris Bhatt 3
--- NOTE | 2019-02-03 19:46 | EDPHYS ---
Physician Documentation [facility] Name: Samson Moreno Age: 43 yrs Sex: Male : 1975 Arrival Date: 02/03/2019 Time: 15:28 Bed 19 Private MD: Dylan Rodriguez V ED Physician Kieran Walsh HPI: 02/03 15:50 This 43 yrs old Male presents to ER via Ambulatory with complaints of Chest cp Pain, Arm Pain. 15:50 The patient or guardian reports chest pain that is located primarily in the anterior cp chest wall, left. Onset: this morning, and became persistent this morning. The pain radiates to the left shoulder, left neck, left back. 15:50 Associated signs and symptoms: Pertinent negatives: abdominal pain, cough, lower cp extremity pain, lower extremity swelling, near syncope, recent travel, shortness of breath, syncope. The chest pain is described as dull. Duration: The patient or guardian reports a single episode, that is still ongoing, and unchanged. Severity of pain: in the emergency department the pain is a 5 / 10. Historical: - Allergies: 15:32 Sulfa (Sulfonamide Antibiotics); aj - PMHx: 15:32 GERD; DVT; aj - PSHx: 15:32 Vasectomy; aj - Immunization history:: Adult Immunizations up to date. - Social history:: Smoking status: Patient/guardian denies using tobacco. - Ebola Screening: : Patient negative for fever greater than or equal to 101.5 degrees Fahrenheit, and additional compatible Ebola Virus Disease symptoms Patient denies exposure to infectious person Patient denies travel to an Ebola-affected area in the 21 days before illness onset No symptoms or risks identified at this time. ROS: 16:00 Constitutional: Negative for body aches, chills, fever, poor PO intake. cp 16:00 Eyes: Negative for injury, pain, redness, and discharge. cp 16:00 Cardiovascular: Positive for chest pain, Negative for edema, palpitations. cp 16:00 ENT: Negative for drainage from ear(s), ear pain, sore throat, difficulty swallowing, cp difficulty handling secretions. 16:00 Neck: Positive for pain at rest, Negative for injury or acute deformity, pain with movement, stiffness. 16:00 Respiratory: Negative for cough, shortness of breath, wheezing. 16:00 Abdomen/GI: Negative for abdominal pain, nausea, vomiting, and diarrhea, black/tarry stool, rectal bleeding. 16:00 Back: Positive for radiated pain, Negative for injury or acute deformity. 16:00 Skin: Negative for rash. 16:00 Neuro: Negative for altered mental status, dizziness, headache, syncope, near syncope, weakness. 16:00 All other systems are negative. Exam: 15:46 ECG was reviewed by the Attending Physician. cp 16:05 Constitutional: The patient appears in no acute distress, alert, awake, cp non-diaphoretic, non-toxic, well developed, well nourished. 16:05 Head/Face: Normocephalic, atraumatic. cp 16:05 Eyes: Periorbital structures: appear normal, Conjunctiva: normal, no exudate, no cp injection, Sclera: no appreciated abnormality, Lids and lashes: appear normal, bilaterally. 16:05 ENT: External ear(s): are unremarkable, Nose: is normal, Mouth: is normal, Posterior pharynx: is normal, airway is patent, no erythema, no exudate. 16:05 Neck: ROM/movement: is normal, is supple, no range of motions limitations, no meningismus, no nuchal rigidity. 16:05 Chest/axilla: Inspection: normal, Palpation: is normal, no crepitus, no tenderness. 16:05 Cardiovascular: Rate: normal, Rhythm: regular, Pulses: Pulses are 2+ in right radial cp artery and left radial artery. Heart sounds: murmur, not appreciated, rub, not appreciated, gallop, not appreciated, Edema: is not appreciated, JVD: is not appreciated. 16:05 Respiratory: the patient does not display signs of respiratory distress, Respirations: normal, no use of accessory muscles, no retractions, no splinting, no tachypnea, labored breathing, is not present, Breath sounds: are clear throughout, no decreased breath sounds, no stridor, no wheezing. 16:05 Abdomen/GI: Inspection: abdomen appears normal, Palpation: abdomen is soft and non-tender, in all quadrants. 16:05 Back: pain, that is mild, of the left trapezius, left scapular area and left subscapular area, ROM is normal. 16:05 Skin: no rash present. 16:05 Neuro: Orientation: to person, place \T\ time. Mentation: is normal, Motor: moves all fours, strength is normal, Sensation: is normal. Vital Signs: 15:32 BP 154 / 99; Pulse 73; Resp 16; Temp 98.5; Pulse Ox 98% on R/A; Weight 95.25 kg; Height aj 5 ft. 10 in. (177.80 cm); 16:17 BP 138 / 88; Pulse 62; Pulse Ox 98% on R/A; sg 16:45 BP 131 / 87; Pulse 59; Resp 17; Pulse Ox 99% on R/A; sg 17:20 BP 140 / 98; Pulse 55; Resp 17; Pulse Ox 99% on R/A; sg 18:33 BP 141 / 98; Pulse 62; Resp 17; Pulse Ox 100% on R/A; sg 19:38 BP 150 / 110; Pulse 74; Resp 16; Pulse Ox 100% ; ao 15:32 Body Mass Index 30.13 (95.25 kg, 177.80 cm) aj MDM: 15:36 Patient medically screened. peri 16:00 Differential diagnosis: abnormal EKG, acute myocardial infarction, acute pericarditis, cp chest wall pain, cholecystitis, Cholelithiasis pancreatitis, pleurisy, pulmonary embolus, stable angina. 17:00 ED course: VSS. Pain relieved after administration of nitro. cp 17:57 HEART Score: History: Moderately Suspicious (1), ECG: Normal (0), Age: < or = 45 years cp (0), Risk Factors: 1 or 2 risk factors (1), Troponin: < or = 1 x Normal Limit (0). The patient was not given aspirin in the Emergency Department. Patient reports taking aspirin within the past 24 hours. Data reviewed: vital signs, nurses notes, lab test result(s), EKG, radiologic studies, plain films. Test interpretation: by ED physician or midlevel provider: ECG, plain radiologic studies. Physician consultation: Dylan Rodriguez MD was called at 17:55, was contacted at 17:55, regarding admission, to the telemetry unit. patient's condition, and will see patient in ED, shortly. 02/03 15:45 Order name: Basic Metabolic Panel; Complete Time: 16:55 cp 02/03 16:56 Interpretation: Normal except: CL 110; GLUC 117; GFR 70; CA 8.4. cp 02/03 15:45 Order name: CBC with Diff; Complete Time: 16:55 cp 02/03 15:45 Order name: LFT's; Complete Time: 16:55 cp 02/03 15:45 Order name: Magnesium; Complete Time: 16:55 cp 02/03 15:45 Order name: NT PRO-BNP; Complete Time: 16:55 cp 02/03 15:45 Order name: PT-INR 02/03 15:45 Order name: Troponin (emerg Dept Use Only); Complete Time: 16:55 cp 02/03 15:45 Order name: D-Dimer 02/03 19:37 Order name: Basic Metabolic Panel EDMN 02/03 19:38 Order name: Basic Metabolic Panel EDMN 02/03 19:38 Order name: CBC with Automated Diff EDMS 02/03 19:38 Order name: CBC with Automated Diff EDMN 02/03 19:38 Order name: Troponin I EDMN 02/03 19:38 Order name: Troponin I EDMN 02/03 15:45 Order name: XRAY Chest (1 view); Complete Time: 16:55 cp 02/03 15:45 Order name: EKG; Complete Time: 15:46 cp 02/03 15:45 Order name: Cardiac monitoring; Complete Time: 15:48 cp 02/03 15:45 Order name: EKG - Nurse/Tech; Complete Time: 15:48 cp 02/03 15:45 Order name: IV Saline Lock; Complete Time: 16:19 cp 02/03 18:52 Order name: CT Chest For PE Angio; Complete Time: 19:41 cp 02/03 19:38 Order name: Regular EDMS 02/03 19:38 Order name: EKG Electrocardiogram EDMS 02/03 19:38 Order name: EKG Electrocardiogram EDMS 02/03 19:38 Order name: EKG Electrocardiogram EDMS 02/03 19:38 Order name: EKG Electrocardiogram EDMN 02/03 19:38 Order name: Troponin I EDMN 02/03 15:45 Order name: Labs collected and sent; Complete Time: 16:19 cp 02/03 15:45 Order name: O2 Per Protocol; Complete Time: 15:48 cp 02/03 15:45 Order name: O2 Sat Monitoring; Complete Time: 15:48 cp EC:46 Rate is 65 beats/min. Rhythm is regular. IN interval is normal. QRS interval is normal. cp QT interval is normal. T waves are Flattened in lead III. Interpreted by me. Reviewed by me. Administered Medications: 16:00 Drug: NS 0.9% 1000 ml Route: IV; Rate: 1 bolus; Site: right antecubital; sg 20:46 Follow up: IV Status: Completed infusion; IV Intake: 1000ml ao 16:00 Drug: Nitroglycerin 0.4 mg Route: Sublingual; sg 16:25 Follow up: Response: No adverse reaction; Pain is unchanged, physician notified; Blood sg pressure is lowered 20:46 Follow up: Response: No adverse reaction ao 16:17 Not Given (pt was given 4 baby aspirin LOAN WORKOUT OFFICER by clinic): Aspirin Chewable Tablet 324 mg sg PO once; 81 mg tablets x 4 20:06 Drug: Lovenox 1 mg/kg Route: Sub-Q; Site: abdomen; ao 20:47 Follow up: Response: No adverse reaction ao Disposition: 02/04 07:51 Co-signature as Attending Physician, Kieran Walsh MD I agree with the assessment and [facility] plan of care. Disposition: 02/03/19 19:44 Hospitalization ordered by Dylan Rodriguez for Observation. Preliminary diagnosis are Pulmonary embolism, Chest pain, unspecified. - Bed requested for Telemetry/MedSurg (observation). - Status is Observation. ao - Condition is Stable. - Problem is new. - Symptoms have improved. UTI on Admission? No Signatures: Dispatcher [employer] EDYao Crabtree RN RN sg Myers, Amanda, RN RN aj Anderson, Corey, MD MD cha Page, Corey, PA PA cp Luiza Newton RN RN Samson Torres RN RN ao Corrections: (The following items were deleted from the chart) 02/03 16:59 16:56 Normal except: CL 110; GLUC 117; GFR 70. cp cp 19:46 19:44 Hospitalization Ordered by Dylan Rodriguez MD for Observation. Preliminary diagnosis cg is Pulmonary embolism; Chest pain, unspecified. Bed requested for Telemetry/MedSurg (observation). Status is Observation. Condition is Stable. Problem is new. Symptoms have improved. UTI on Admission? No. cp 19:50 19:46 02/03/2019 19:44 Hospitalization Ordered by Dylan Rodriguez MD for Observation. cg Preliminary diagnosis is Pulmonary embolism; Chest pain, unspecified. Bed requested for Telemetry/MedSurg (observation). Status is Observation. Condition is Stable. Problem is new. Symptoms have improved. UTI on Admission? No. cg 21:24 19:50 02/03/2019 19:44 Hospitalization Ordered by Dylan Rodriguez MD for Observation. ao Preliminary diagnosis is Pulmonary embolism; Chest pain, unspecified. Bed requested for Telemetry/MedSurg (observation). Status is Observation. Condition is Stable. Problem is new. Symptoms have improved. UTI on Admission? No. cg
[2019-02-03] MEDS ORDERED: ENOXAPARIN 100 MG/ML SYR SQ ONE (20:19)
[2019-02-03] MEDS: ENOXAPARIN 100 MG/ML SYR SQ SCH (21:00)
--- NOTE | 2019-02-03 21:15 | P.SSS ---
Patient History Date of Service: 02/03/19 Reason for admission: CHEST PAIN History of Present Illness: MR. ATWOOD HAD A PROVOKED PE LAST YEAR. HE WAS ON 6 MONTHS OF XARELTO AT THAT TIME. NOW FOR LAST DAY OR SO HE HAS CHEST PAIN WITH RADIATION TO L ARM SINCE THIS AM. PA CALLED FOR ADMISSION. I ASKED HIM TO RUN THE STUDY FOR PE HE HAD PE BEFORE. THIS TIME HE HAS SMALL PE IN THE LOWERL LEFT LUNG REGION THAT IS NEW IN ADDITION TO OLD PE . HE IS A SMOKER AND DRINKS HEAVY ALCOHOL ON THE WEEKEND. I ADVISED HIM TO STOP SMOKING AND CUT BACK BEER TO 2 BEERS OR SO ON THE WEEKEND. Allergies Sulfa (Sulfonamide Antibiotics) Allergy (Verified 04/07/17 05:10) Hives sulfamethoxazole [From Bactrim] Allergy (Verified 01/19/18 21:13) Hives trimethoprim [From Bactrim] Allergy (Verified 01/19/18 21:13) Hives Home Medications: Dexlansoprazole [Dexilant] 60 mg PO DAILY 01/19/18 Metronidazole 500 mg PO TID 01/19/18 Rivaroxaban [Xarelto] 15 mg PO BID 21 Days #42 tablet 01/20/18 Rivaroxaban [Xarelto] 20 mg PO DAILY #30 tab 01/20/18 - Past Medical/Surgical History Diabetic: No -: GERD -: Nephrolithiasis -: Venous insufficiency -: Venous stripping - Family History Mother -: Hypertension - Social History Alcohol use: Yes CD- Drugs: No Caffeine use: No Review of Systems 10-point ROS is otherwise unremarkable Physical Examination - Physical Exam General: Alert, In no apparent distress, Mild distress (L SIDE CHEST WALL PAIN. ARM FEELS NUMB ALSO. ) HEENT: Atraumatic, PERRLA, Mucous membr. moist/pink, EOMI, Sclerae nonicteric Neck: Supple, 2+ carotid pulse no bruit, No LAD, Without JVD or thyroid abnormality Respiratory: Clear to auscultation bilaterally, Normal air movement Cardiovascular: Regular rate/rhythm, Normal S1 S2 Gastrointestinal: Normal bowel sounds, No tenderness Musculoskeletal: No tenderness Integumentary: No rashes Neurological: Normal gait, Normal speech, Normal strength at 5/5 x4 extr, Normal tone, Normal affect Lymphatics: No axilla or inguinal lymphadenopathy - Studies Laboratory Data (last 24 hrs) 02/03/19 16:00: PT 12.2, INR 1.04 02/03/19 16:00: WBC 4.7, Hgb 14.0, Hct 41.9, Plt Count 291 02/03/19 16:00: Sodium 142, Potassium 3.6, BUN 17, Creatinine 1.13, Glucose 117 H, Magnesium 2.3, Total Bilirubin 0.7, AST 21, ALT 32, Alkaline Phosphatase 54 - Diagnosis (Problem(s)) (1) Chest pain Current Visit: Yes Status: Acute Plan: HE HAS PE. WILL START LOVENOX SC. CHANGE TO XARELTO IN AM. DR. MARTINI CALLED IN. THIS IS UNPROVOKED PE SO HE WILL BE ON XARELTO FOR LIFETIME. BP IS HIGH. HE WAS GIVEN BP MEDS BEFORE BUT HE DID NOT TAKE IT. HE WILL NEED STRESS TEST LATER WHEN OKAY WITH CARDIOLOGISTS. RUNNING FOR ST. TEST IS NOT THE BEST OPTION AT PRESENT WITH PE. Qualifiers: Chest pain type: precordial pain Qualified Code(s): R07.2 - Precordial pain (2) Acute pulmonary embolism Onset Date: 01/21/18 Current Visit: No Status: Acute Plan: ABOVE. - Disposition Disposition: ROUTINE DISCHARGE
[2019-02-03 21:34] VITALS: BMI 29.4
[2019-02-03] MEDS: LOSARTAN POTASSIUM 50 MG TABLET PO SCH (22:47)
[2019-02-03 23:25] LABS: Urine Appearance CLEAR; Urine Bilirubin NEGATIVE (NEG); Urine Blood NEGATIVE (NEG); Urine Color YELLOW; Urine Glucose NEGATIVE (NEG); Urine Protein NEGATIVE (NEG); Urine Specific Gravity >=1.030 (1.005-1.030); Urine Urobilinogen 0.2 mg/dL (0.2-1.0); Urine pH 6.5 (5.0-7.0)
[2019-02-03 23:31] LABS: Urine Microscopic Reflex NO UMIC
[2019-02-04 04:06] VITALS: O2SAT 98
[2019-02-04 05:23] LABS: Absolute Lymphocytes (CBC) 2.5 K/uL (0.7-4.9); Basophils % 0.8 % (0-1.3); Hematocrit 42.8 % (39.6-49.0); Lymphocytes % 50.5 % (15.3-44.8); MPV 7.9 fL (7.6-11.3); RBC Red Blood Cell Count 4.32 M/uL (4.33-5.43)
[2019-02-04 05:31] LABS: Potassium 3.7 mmol/L (3.5-5.1)
--- NOTE | 2019-02-04 08:17 | RAD REPORT ---
EXAM DESCRIPTION: US - Extrem Venous W Compress Dmitri - 02/04/2019 8:05 am CLINICAL HISTORY: PE Bilateral leg edema and swelling. COMPARISON: Extremity Venous Uni [facility] dated 01/19/2018 TECHNIQUE: Real-time sonographic interrogation of the left and right lower extremity deep venous sys tems was performed. FINDINGS: Normal compressibility, flow augmentation, phasic flow and spontaneous flow is identified in both the left and right lower extremity deep venous systems. IMPRESSION: No sonographic evidence of left or right lower extremity deep venous thrombosis.
[2019-02-04] MEDS: LOSARTAN POTASSIUM 50 MG TABLET PO SCH (08:34)
[2019-02-04] MEDS: ENOXAPARIN 100 MG/ML SYR SQ SCH (08:34)
--- NOTE | 2019-02-04 08:42 | P.CNS ---
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 very active Allergies Sulfa (Sulfonamide Antibiotics) Allergy (Verified 02/03/19 21:46) Hives sulfamethoxazole [From Bactrim] Allergy (Verified 02/03/19 21:46) Hives trimethoprim [From Bactrim] Allergy (Verified 02/03/19 21:46) Hives Home Medications: Dexlansoprazole [Dexilant] 60 mg PO DAILY 02/03/19 - Past Medical/Surgical History Diabetic: No -: GERD -: Nephrolithiasis -: Venous insufficiency -: History of pulmonary embolism -: Venous stripping -: vasectomy - Family History Mother Medical History: Hypertension - Social History Smoking Status: Current some day smoker Alcohol use: Yes CD- Drugs: No Caffeine use: No Place of Residence: Home Review of Systems 10-point ROS is otherwise unremarkable Physical Examination Temp Pulse Resp BP Pulse Ox 96.9 F 63 18 110/73 98 02/04/19 04:00 02/04/19 04:00 02/04/19 04:00 02/04/19 04:00 02/04/19 04:00 General: Alert, Oriented x3 Neck: Supple Respiratory: Clear to auscultation bilaterally Cardiovascular: No edema, Regular rate/rhythm Gastrointestinal: Normal bowel sounds, Soft and benign Musculoskeletal: No clubbing, No swelling Laboratory Data (last 24 hrs) 02/03/19 16:00: PT 12.2, INR 1.04 02/03/19 16:00: WBC 4.7, Hgb 14.0, Hct 41.9, Plt Count 291 02/03/19 16:00: Sodium 142, Potassium 3.6, BUN 17, Creatinine 1.13, Glucose 117 H, Magnesium 2.3, Total Bilirubin 0.7, AST 21, ALT 32, Alkaline Phosphatase 54 - Problems (1) Chest pain Current Visit: No Status: Acute Plan: Patient is 43 years of age admitted with chest pain radiating to the left arm and to the was admitted with uncontrolled hypertension patient is non compliant with his antihypertensive therapy. 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
[2019-02-04] MEDS ORDERED: ASPIRIN EC 81 MG TAB PO SCH (09:00)
[2019-02-04 13:10] VITALS: BP 127/91; TEMP 97.6
--- NOTE | 2019-02-04 13:36 | EKG ---
Test Date: 2019-02-04 Test Time: 07:26:11 Rn Provider Relations: NEREIDA MEASUREMENT RESULTS: Intervals: Rate: 53 MS: 152 QRSD: 80 QT: 434 QTc: 407 [place]: P: 68 MS: 152 QRS: 50 T: 58 INTERPRETIVE STATEMENTS: Sinus bradycardia with sinus arrhythmia Otherwise normal ECG Compared to ECG 02/03/2019 15:42:59 Sinus rhythm no longer present Electronically Signed On 02-04-19 13:34:05 CDT by Ty Cabrera
--- NOTE | 2019-02-04 13:38 | EKG ---
Test Date: 2019-02-03 Test Time: 15:42:59 Spring Encaser: NEREIDA MEASUREMENT RESULTS: Intervals: Rate: 65 UT: 150 QRSD: 78 QT: 398 QTc: 413 [place]: P: 66 UT: 150 QRS: 30 T: 38 INTERPRETIVE STATEMENTS: Normal sinus rhythm with sinus arrhythmia Normal ECG Compared to ECG 01/19/2018 17:33:45 Sinus bradycardia no longer present Electronically Signed On 02-04-19 13:34:25 CDT by Ty Cabrera
--- NOTE | 2019-02-04 13:46 | ECHO ---
HEIGHT: 5 ft 10 in WEIGHT: 205 lb 0 oz DATE OF STUDY: 02/04/[address]: Dylan Rodriguez MD 2-DIMENSIONAL: YES M.MODE: YES DOPPLER: YES COLOR FLOW: YES TDS: NO PORTABLE: NO DEFINITY: NO BUBBLE STUDY: NO DIAGNOSIS: EDEMA, DYSPNEA CARDIAC HISTORY: CATHERIZATION: NO SURGERY: NO PROSTHETIC VALVE: NO PACEMAKER: NO MEASUREMENTS (cm) DIASTOLIC (NORMALS) SYSTOLIC (NORMALS) IVSd 0.9 (0.6-1.2) LA Diam 3.3 (1.9-4.0) LVEF 83% LVIDd 4.1 (3.5-5.7) LVIDs 2.0 (2.0-3.5) %FS 51% LVPWd 0.9 (0.6-1.2) Ao Diam 2.7 (2.0-3.7) 2 DIMENSIONAL ASSESSMENT: RIGHT ATRIUM: NORMAL LEFT ATRIUM: NORMAL RIGHT VENTRICLE: NORMAL LEFT VENTRICLE: NORMAL TRICUSPID VALVE: NORMAL MITRAL VALVE: NORMAL PULMONIC VALVE: NORMAL AORTIC VALVE: NORMAL PERICARDIAL EFFUSION: NONE AORTIC ROOT: NORMAL LEFT VENTRICULAR WALL MOTION: NORMAL DOPPLER/COLOR FLOW: NORMAL COMMENTS: NORMAL 2D ECHOCARDIOGRAM WITH DOPPLER. NO WALL MOTION ABNORMALITY. NO EFFUSION. TECHNOLOGIST: Antonio ZALDIVAR
--- NOTE | 2019-02-05 10:58 | CON ---
Date of Consultation: 02/04/[address] Rodriguez's service on 02/03/2019. Reason For Consultation: Chest pain. History Of Present Illness: Mr. Moreno is a 43-year-old male who has a history of gastroesophageal r eflux. In January of 2018, I saw him after an episode of deep venous thrombosis in the left lower extre mity and a pulmonary embolus. He was placed on Xarelto for 3 to 4 months at that time. He came at t his time with sharp chest pain over the left anterior chest that radiated to the left shoulder with s ome diaphoresis, but no nausea or vomiting or shortness of breath. Denied any PND, orthopnea, pedal edema, palpitation, or syncope. He is already ruled out for an MO. CT angiogram showed what was catalina d as possibly acute on chronic right lung small pulmonary emboli. Echocardiogram that was done befor e I saw him was normal. He was very hypertensive when he was having the chest pain. Allergies: HE IS ALLERGIC TO SULFA. Review of Systems: Negative. Social History: Negative. Family History: Negative. Medications: Medication at home: Dexilant. Physical Examination: Vital Signs: Stable. Afebrile. HEENT: Negative. Neck: Supple with no bruit. Chest: Clear to auscultation and percussion. Cardiac: Regular rhythm and rate. No murmurs, gallops, or rubs. Abdomen: Benign. Extremities: No clubbing, cyanosis, or edema. Diagnostic Data: As stated earlier. Impression And Plan: 1.Atypical chest pain, most likely musculoskeletal. 2.Hypertension. 3.Gastroesophageal reflux disease. 4.Chronic pulmonary embolus in the right lung. The patient was already seen by Dr. Calzada, who re commended long-term anticoagulation, which I agree with. He has had a negative hematological workup in the past. As far as his chest pain is concerned, I think that may have been related to hypertensi on or could be musculoskeletal. Nevertheless, I think he needs to be on antihypertensive medication, preferably an GIOVANY inhibitor or a beta-lachelle, and we will schedule him for an outpatient stress johnson t. He can go home whenever it is okay with Dr. Rodriguez. LINDSEY/PRAVINL Voice ID: [id number] Report ID: [id number]
== END 2019-02-04 14:10 | disposition home or self-care (01) ==
LOC: ER 15:28 → ERHOLD 19:33 → 4TH 20:45
PROVIDERS: ADMIT Internal Medicine; ATTEND Internal Medicine
DX: R07.89 Other chest pain (principal); I10 Essential (primary) hypertension; K21.9 Gastro-esophageal reflux disease without esophagitis; I27.82 Chronic pulmonary embolism; F17.200 Nicotine dependence, unspecified, uncomplicated; Z79.01 Long term (current) use of anticoagulants; Z86.718 Personal history of other venous thrombosis and embolism; Z91.14 Patient's other noncompliance with medication regimen
CPT/HCPCS: 36415; 71045; 71275; 80048; 80076; 81003; 83735; 83880; 84484; 85025; 85379; 85610; 93005; 93306; 93970; 96360; 96361; 96372; 99285; G0378; J1650; J7030; Q9967